=== PATIENT | male | born 1950 | race Caucasian/White ===

== ENCOUNTER 2020-03-01 13:01 | Emergency (ER) | payer MEDICARE, SELFPAY ==
[2020-03-01 13:05] VITALS: BP 104/52; PULSE 53; RESP 18; TEMP 36.3; O2SAT 98; BMI 23.9
--- NOTE | 2020-03-01 13:14 | XR_ITS ---
WS: [id number] RIGHT HAND: 3 VIEW(S) TECHNIQUE: PA, oblique and lateral. HISTORY: trauma COMPARISON: None available. Linear defect in the third finger extends from the distal phalanx through the middle phalanx and a ma jority of the proximal phalanx. There are multiple small bony fragments of soft tissue injury. Otherwise interphalangeal arthritis. XR/XR hand RT min 3V* [id number] IMPRESSION: 1. Linear fracture with osseous defects and fragmentation involving the third finger as above. 2. No residual foreign body.
--- NOTE | 2020-03-01 13:17 | W.ED.WOUNDLC ---
HPI - Wound/Laceration General: Chief Complaint: Wound/Laceration Stated Complaint: hand lac Time Seen by Provider: 03/01/20 13:05 Source: patient Mode of arrival: ambulatory Limitations: language barrier (pt is deaf) History of Present Illness: HPI narrative: Patient is a 69-year-old male who presents to ED today with complaints of a right hand injury. Patient states he was in his shop with a running table saw when he accidentally tripped causing his right hand to go forward and strike the running saw blade. Onset (ago): minute(s) Extremity Location: Right: hand Place: home Patient tetanus UTD: No Review of Systems Skin/Breast: Reports: other (laceration/soft tissue injury to R hand) Neuro: Reports: changes in sensation (R 3rd finger) Physical Exam Const: COMMON NORMALS: no apparent distress, average body habitus, oriented x3, healthy appearing, alert and well nourished EXAM LIMITATIONS: language barrier (pt is deaf but reads lips well) Extremity: OTHER: Patient has been extensive laceration starting at the palmar aspect of the distal tip of the third digit and extending proximally into the palm. The entire flexor side of the digit is exposed with exposed and damaged flexor tendons. Sensory does appear to be affected. Nerve fibers are noted to be damaged. Laceration depth extends almost fully through the digit. Neuro: COMMON NORMALS: oriented x3 SENSORIUM/ORIENTATION: Yes alert Skin: OTHER: see extremity assessment Course Consultations: Consultation #1: Dr. Candelaria spoke to [facility] hand surgeon Dr. Cee who recommended transfer to OR holding for surgery Vital Signs: Vital signs: Vital Signs Temperature 97.3 F L 03/01/20 13:05 Pulse Rate 53 L 03/01/20 13:05 Respiratory Rate 18 03/01/20 13:05 Blood Pressure 104/52 03/01/20 13:05 Pulse Oximetry 98 03/01/20 13:05 MDM - Wound/Laceration Imaging Data^: R hand XR: My impression: fractures involving distal, middle, and proximal phalanx of R 3rd digit Discharge Plan Discharge Patient Disposition: Xfer Other Clinical Impression: Flexor tendon laceration, finger, open wound Qualifiers: Encounter type: initial encounter Qualified Code(s): S56.129A - Laceration of flexor muscle, fascia and tendon of unspecified finger at forearm level, initial encounter Open fracture of middle phalanx of right index finger Qualifiers: Encounter type: initial encounter Fracture alignment: nondisplaced Qualified Code(s): S62.650B - Nondisplaced fracture of middle phalanx of right index finger, initial encounter for open fracture Open fracture of proximal phalanx of right middle finger Qualifiers: Encounter type: initial encounter Fracture alignment: nondisplaced Qualified Code(s): S62.642B - Nondisplaced fracture of proximal phalanx of right middle finger, initial encounter for open fracture Open fracture of distal phalanx of right middle finger Qualifiers: Encounter type: initial encounter Fracture alignment: nondisplaced Qualified Code(s): S62.662B - Nondisplaced fracture of distal phalanx of right middle finger, initial encounter for open fracture Condition: Stable Referrals: Joao Zuñiga MD [Family Provider] - Coding Level of Care Code 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
[2020-03-01] MEDS: ondansetron 2 mg/ML SDV 2 mL 4 MG IVP (13:26)
[2020-03-01 13:27] VITALS: RESP 18
[2020-03-01] MEDS: morphine 4 mg/mL SDV 1 mL IVP (13:27)
[2020-03-01] MEDS: ceFAZolin 1,000 mg SDV 1000 MG IVP (13:28)
[2020-03-01] MEDS: tetanus-diphtheria tox (adult) 0.5 mL SDV IM (15:52)
[2020-03-01 16:56] VITALS: BP 121/60; PULSE 53; RESP 20; O2SAT 98
== END 2020-03-01 16:58 | disposition other institution (70) ==
PROVIDERS: Emergency Provider Physician Assistant; Family Provider Family Medicine
DX: S62.650B Nondisplaced fracture of middle phalanx of right index finger, initial encounter for open fracture (principal); S62.642B Nondisplaced fracture of proximal phalanx of right middle finger, initial encounter for open fracture; S62.662B Nondisplaced fracture of distal phalanx of right middle finger, initial encounter for open fracture; S56.129A Laceration of flexor muscle, fascia and tendon of unspecified finger at forearm level, initial encounter; W31.2XXA Contact with powered woodworking and forming machines, initial encounter; H91.3 Deaf nonspeaking, not elsewhere classified; Z23 Encounter for immunization
CPT/HCPCS: 12345; 73130; 90471; 90714; 96374; 96375; 99281; 99283; J0690; J2270; J2405

== ENCOUNTER 2020-03-16 14:06 | Outpatient (RCR) | payer MEDICARE, SELFPAY | END 2020-03-19 23:59 | disposition home or self-care (01) | LOC: SOT 14:06 | PROVIDERS: Family Provider Family Medicine; PCP Family Medicine; Referring Provider Physician Assistant Surgical; Visit Provider Physician Assistant Surgical | DX: S69.81XD Other specified injuries of right wrist, hand and finger(s), subsequent encounter (principal); W31.2XXD Contact with powered woodworking and forming machines, subsequent encounter | CPT/HCPCS: 97110; 97166 ==

== ENCOUNTER 2020-03-20 06:00 | Outpatient (RCR) | payer MEDICARE, SELFPAY | END 2020-04-19 23:59 | disposition home or self-care (01) | LOC: SOT 06:00 | PROVIDERS: Family Provider Family Medicine; PCP Family Medicine; Referring Provider Physician Assistant Surgical; Visit Provider Physician Assistant Surgical | DX: S69.81XD Other specified injuries of right wrist, hand and finger(s), subsequent encounter (principal); W31.2XXD Contact with powered woodworking and forming machines, subsequent encounter | CPT/HCPCS: 97035; 97110; 97140 ==

== ENCOUNTER 2020-04-20 06:00 | Outpatient (RCR) | payer MEDICARE, SELFPAY | END 2020-04-22 23:00 | disposition home or self-care (01) | LOC: SOT 06:00 | PROVIDERS: PCP Family Medicine; Visit Provider Physician Assistant Surgical | DX: S69.81XD Other specified injuries of right wrist, hand and finger(s), subsequent encounter (principal); W31.2XXD Contact with powered woodworking and forming machines, subsequent encounter | CPT/HCPCS: 97035; 97110; 97112; 97140 ==

== ENCOUNTER 2020-06-03 12:08 | Emergency (ER) | payer MEDICARE, SELFPAY ==
[2020-06-03 12:10] VITALS: BP 125/69; PULSE 59; RESP 16; TEMP 36.6; O2SAT 98; BMI 23.0
--- NOTE | 2020-06-03 12:42 | W.ED.WOUNDLC ---
HPI - Wound/Laceration General: Chief Complaint: Wound/Laceration Stated Complaint: BLEEDING Time Seen by Provider: 06/03/20 12:29 Source: patient and family History of Present Illness: HPI narrative: 70-year-old male was cutting down cedar trees just prior to arrival and his chainsaw went through 1 flipped back and hit him on his right lower leg. He is not on any blood thinners. Tetanus is up-to-date last shot was in February of this year. Pain is minimal. No other injuries. Bleeding is controlled. Associated symptoms: Denies chills, fever(s), nausea or vomiting Review of Systems General: Reports: 10 or more systems reviewed and unremarkable except in HPI and below Const: Denies: fever(s) or chills Eyes: Denies: change in vision ENMT: Denies: throat pain Card: Denies: chest pain Resp: Denies: dyspnea GI: Denies: abdominal pain, nausea, vomiting or change in bowel habits Musc: Denies: muscle weakness Skin/Breast: Reports: other (Laceration to right lower extremity); Denies: rash Neuro: Denies: headache(s) Psych: Denies: hopelessness or suicidal ideation Endo: Denies: polyuria Timi/Lymph: Denies: easy bruising or easy bleeding All/Imm: Denies: urticaria Physical Exam Const: COMMON NORMALS: no acute distress and patient oriented x3 HENMT: COMMON NORMALS: normocephalic and Normal external nose present HEAD & SCALP: normocephalic NOSE: Normal external nose present Eye: COMMON NORMALS: Equal, round and reactive pupils present and EOMs intact bilaterally PUPIL: Yes Equal, round and reactive pupils present Resp: COMMON NORMALS: normal respiratory effort and clear to auscultation bilaterally AUSCULTATION: clear to auscultation bilaterally Cardio: COMMON NORMALS: regular rate and regular rhythm RATE: regular rate RHYTHM: regular rhythm Extremity: OTHER: RLE WITH 3 CM LACERATION TO MEDIAL LOWER LEG WITH BLEEDING CONTROLLED. NORMAL FLEXIONN/EXTENSION OF FOOT. SENSATION INTACT TO TOUCH GOOD DISTAL PULSES Neuro: COMMON NORMALS: patient oriented x3 SPEECH: speech normal Psych: COMMON NORMALS: Normal thought process present THOUGHT PROCESS: Normal thought process present Skin: OTHER: SEE EXTREMITY SECTION FOR DETAILS OF LACERATION. 3 CM Procedures Laceration Laceration 1: Site: lower extremity Side (If applicable): right Size (cm): 3 Description: irregular and contaminated Depth: simple, single layer (ALONG WITH SUBCUTANEOUS TISSUE BUT NO MUSCLE) Local Anesthetic: lidocaine 1% and with epi Amount of anesthesia used (mL): 3 Pre-repair: wound explored, irrigated extensively and deep structures intact Skin layer closed with: nylon and vicryl Size (cm): 4-0 Number of sutures: 1 Technique: running Subcutaneous layer closed with: vicryl Size: 4-0 Number of sutures: 5 Technique: simple, interrupted Course Vital Signs: Vital signs: Vital Signs Temperature 98 F 06/03/20 12:10 Pulse Rate 49 L 06/03/20 12:46 Respiratory Rate 18 06/03/20 12:46 Blood Pressure 125/69 06/03/20 12:46 Pulse Oximetry 99 06/03/20 12:46 MDM - Wound/Laceration MDM Narrative: Medical decision making narrative: Irrigated wound with normal saline several specks of what I seem to be much dirt or wood chips were removed with cotton swab and then irrigated again copiously until wound appeared to be clean. Patient tolerated procedure well. Asked them to return to the ER 7 to 10 days for suture removal anytime at all if any sign of infection. Will start Keflex since wound was contaminated. Discharge Plan Discharge Patient Disposition: Home, Self-Care Clinical Impression: Laceration Condition: Stable Prescriptions: New Keflex 500 mg capsule 500 mg PO TID 10 Days Qty: 30 RF: 0 Referrals: Joao Zuñiga MD [Primary Care Provider] - Patient Instructions: Suture Care (ED), Laceration (ED) Activity Restrictions/Additional Instructions: Return to ER in 7-10 for suture removal. Return to ER anytime if any sign of infection. keep leg clean and dry. Coding Level of Care Code ED Urban Planning Teacher for Haylee Garcia
[2020-06-03 12:46] VITALS: BP 125/69; PULSE 49; RESP 18; O2SAT 99
[2020-06-03 13:48] VITALS: BP 122/67; PULSE 50; RESP 16; O2SAT 98
--- NOTE | 2020-06-11 10:06 | PC.NURSE ---
Sutures removed at this time. Whit Bustillo PA-C looked at the wound due to it opening back up a little after sutures removed. Per RJ Sherman to ensure patient is keeping the wound clean and dry and to apply antibiotics to the site. Also educated to continue antibiotics that patient was previously placed on after the incident happened.
== END 2020-06-03 13:48 | disposition home or self-care (01) ==
PROVIDERS: Emergency Provider Emergency Medicine; PCP Family Medicine
DX: S81.811A Laceration without foreign body, right lower leg, initial encounter (principal); W29.3XXA Contact with powered garden and outdoor hand tools and machinery, initial encounter
CPT/HCPCS: 12032; 12345; 99282

== ENCOUNTER → 2021-06-07 13:44 | Outpatient (BNVA) | payer MEDICARE, SELFPAY | PROVIDERS: PCP Family Medicine; Referring Provider Family Medicine; Visit Provider Specialist | DX: M79.643 Pain in unspecified hand (principal); M66.242 Spontaneous rupture of extensor tendons, left hand | CPT/HCPCS: 73130 ==

== ENCOUNTER → 2023-06-05 11:22 | Outpatient (BNVA) | payer MEDICARE, SELFPAY | PROVIDERS: PCP Family Medicine; Visit Provider Family Medicine | DX: I25.10 Atherosclerotic heart disease of native coronary artery without angina pectoris (principal); G56.03 Carpal tunnel syndrome, bilateral upper limbs; E78.00 Pure hypercholesterolemia, unspecified; I10 Essential (primary) hypertension; Z00.00 Encounter for general adult medical examination without abnormal findings | CPT/HCPCS: 80053; 80061; 85025 ==

== ENCOUNTER → 2023-07-03 12:49 | Outpatient (BNVA) | payer MEDICARE, SELFPAY | PROVIDERS: PCP Family Medicine; Visit Provider Surgery | DX: K59.00 Constipation, unspecified (principal) | CPT/HCPCS: 99202 ==

== ENCOUNTER 2023-07-10 12:52 | Emergency (ER) | payer MEDICARE, SELFPAY ==
[2023-07-10 12:58] VITALS: BMI 23.9
[2023-07-10 13:07] VITALS: BP 132/78; PULSE 88; RESP 16; TEMP 36.4; O2SAT 95
--- NOTE | 2023-07-10 14:41 | CTR_ITS ---
PROCEDURE INFORMATION: Exam: CT Chest Without Contrast; Diagnostic Exam date and time: 07/10/2023 2:59 PM Age: 73 years old Clinical indication: Injury or trauma; Fall; Blunt trauma (contusions or hematomas); Patient HX: Left rib pain; Additional info: Trauma left chest TECHNIQUE: Imaging protocol: Diagnostic computed tomography of the chest without contrast. Radiation optimization: All CT scans at this facility use at least one of these dose optimization techniques: automated exposure control; mA and/or kV adjustment per patient size (includes targeted exams where dose is matched to clinical indication); or iterative reconstruction. REPORTING DATA: Count of CT and Cardiac NM exams in prior 12 months: This patient has received 0 known CTs and 0 known cardiac nuclear medicine studies in the 12 months prior to the current study. COMPARISON: No relevant prior studies available. RADIATION DOSE METRICS: Total DLP (mGy-cm): 346.83 FINDINGS: Tubes, catheters and devices: Partially visualized spinal stimulator with right low back subcutaneous generator and leads coursing superiorly, terminating at the T7-8 level. Lungs: Mild patchy ground-glass opacities at the upper lobes. No consolidation or mass. Mild bibasilar platelike atelectasis versus scarring. Right lower lobe calcified granuloma. 2 mm subpleural right upper lobe nodule on axial image 27 of series 4. Pleural spaces: Unremarkable. No pneumothorax. No pleural effusion. Heart: Unremarkable. No cardiomegaly. No pericardial effusion. Coronary arteries: Mild coronary artery calcification. Lymph nodes: No enlarged lymph nodes. Vasculature: Mild systemic atherosclerotic calcification without aortic aneurysm. Diaphragm: Moderate hiatal hernia. Gallbladder and bile ducts: Prior cholecystectomy. Kidneys and ureters: Bilateral renal cysts. Bones/joints: No acute fracture. Chronic appearing ununited left clavicle fracture. Mild upper thoracic spine dextroconvex curvature. Degenerative changes along the spine. Left humeral head suture anchor. L2-L3 posterior instrumented fusion. Soft tissues: Unremarkable. CT/CT chest wo con [id number] IMPRESSION: 1. No acute fracture. 2. Mild bilateral upper lobe patchy ground-glass opacities may represent contusion given history of trauma. Infectious or inflammatory etiology not entirely excluded. Recommend follow-up chest CT in 3-6 months, at which time 2 mm right upper lobe nodule can also be reassessed. 3. Moderate hiatal hernia. COMMENTS: Consistent with the [employer]'s Incidental Findings Committee white paper (J Am Rolf Radiol 2018): Any incidental renal lesion less than 1 cm or classified as too small to characterize, or any incidental cystic renal lesion characterized as simple-appearing, is likely benign. No follow-up imaging is recommended for these lesions per consensus recommendations based on imaging criteria.
--- NOTE | 2023-07-10 14:47 | W.ED.FALL ---
HPI - Fall General: Chief Complaint: Fall Stated Complaint: fell off ladder, rib pain Time Seen by Provider: 07/10/23 14:37 Source: patient and family Mode of arrival: ambulatory Limitations: no limitations History of Present Illness: This patient comes to our emergency department today because of left chest pain. He apparently was working on a ladder approximately 4 feet off the ground and an accidental fall from at height landing on his left side and chest. He states he did not hit his head. He states that part of the fall was broken by barbed wire fence however he he had a protective rib belt on at that time he did not suffer any significant lacerations other than just some minor scratching to his left flank. Also has a few scratches on his forehead. He states that since that time he is continue to have pain in his left chest particularly with taking deep breaths or twisting and turning and moving. He denies any fevers or chills. Denies any hemoptysis etc. States he has no other areas of concern for injury at this time. Past history is remarkable for prior back fusion. But he denies any midline back pain. Place fall occurred: home Loss of consciousness: None Location of injury: chest Associated symptoms-after fall: Reports chest pain; Denies abdominal pain, headache(s), hematuria or neck pain Review of Systems Const: Denies: fever(s) or chills Eyes: Denies: change in vision or blurry vision Card: Reports: chest pain; Denies: palpitations or irregular heart rhythm Resp: Reports: pain on inspiration; Denies: dyspnea, productive cough or non-productive cough GI: Denies: abdominal pain, nausea, vomiting or diarrhea : Denies: flank pain, difficulty urinating, dysuria, urinary frequency or hematuria Musc: Denies: neck pain, extremity pain or extremity swelling Neuro: Denies: headache(s), numbness in extremities or weakness in extremities Timi/Lymph: Denies: easy bruising or easy bleeding PFSH ED PFSH: Medical History Carpal tunnel syndrome, bilateral upper limbs [id number] Coronary artery disease Hypercholesteremia Hypertension Family History Denies family history of Anesthesia complication Social History Smoking and tobacco status: former smoker (2010) Alcohol intake: current Alcohol intake frequency: 0-2 Drinks per Day Alcohol type: beer Physical Exam Narrative: EXAM NARRATIVE: He is alert appears to be somewhat uncomfortable with certain movement and taking deep breaths but answers questions in a goal-directed fashion. Const: COMMON NORMALS: average body habitus and patient oriented x3 GENERAL APPEARANCE: cooperative ORIENTATION/CONSCIOUSNESS: Yes awake, Yes oriented to person and Yes oriented to place HENMT: COMMON NORMALS: normocephalic, Normal nasal mucous membranes and turbinates present, moist oral mucous membranes and oropharynx normal HEAD & SCALP: normocephalic and abrasion; no contusion and no hematoma HEAD IMAGES: 1. Superficial abrasions FACE & SINUS: face symmetric NOSE: Normal nasal mucous membranes and turbinates present Eye: COMMON NORMALS: Equal, round and reactive pupils present, EOMs intact bilaterally and conjunctivae normal CONJUNCTIVA: Yes conjunctivae normal PUPIL: Yes Equal, round and reactive pupils present Neck/C-Spine: COMMON NORMALS: full ROM CERVICAL SPINE: Yes cervical ROM normal, No pain with cervical ROM, No Cervical spine tenderness, No step off deformity, No Paracervical muscle tenderness, No Paracervical spasm and No Trapezius muscle tenderness Resp: COMMON NORMALS: normal respiratory effort, No retractions, No use of accessory muscles and clear to auscultation bilaterally AUSCULTATION: clear to auscultation bilaterally Cardio: COMMON NORMALS: regular rate, regular rhythm, No murmurs present (Cardio) and Peripheral pulses 2+ throughout RATE: regular rate RHYTHM: regular rhythm PERIPHERAL PULSES: Peripheral pulses 2+ throughout GI: COMMON NORMALS: Normal to inspection, nondistended, normoactive bowel sounds present Back/Pelvis: COMMON NORMALS: thoracic and lumbar spine normal to inspection, thoraco-lumbar ROM normal and straight leg raise negative bilaterally BACK IMAGE (MALE): 1. Superficial abrasions 2. Area of tenderness Extremity: COMMON NORMALS: normal to inspection, full ROM, no calf tenderness and no pedal edema Neuro: COMMON NORMALS: patient oriented x3, moves all extremities, no focal motor deficits and no sensory deficits noted SENSORIUM/ORIENTATION: Yes oriented to person and Yes oriented to place Psych: COMMON NORMALS: mental status grossly normal Skin: COMMON NORMALS: turgor normal GENERAL SKIN EXAM: turgor normal TRAUMA: abrasion Course Reevaluation(s): Reevaluation #1: Patient was reevaluated and no new or focal findings on repeat examination. We discussed current radiographic findings to include a reassuring chest CT without any evidence of pneumothorax or rib fracture etc. 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 He states he thinks its been present approximately 8 years. He states he previously saw an orthopedic surgeon in the past but they declined to provide any therapy. I asked him if you would like a referral to another orthopedic surgeon today but he stated he would consider that but did not want that to be put entertained today. We discussed expected course, return precautions with both he and his spouse. Stable at this time for discharge. Time: 16:36 Vital Signs: Vital signs: Vital Signs Temperature 97.5 F L 07/10/23 13:07 Pulse Rate 49 L 07/10/23 15:30 Respiratory Rate 16 07/10/23 13:07 Blood Pressure 119/63 07/10/23 15:30 Pulse Oximetry 99 07/10/23 15:30 Oxygen Delivery Me thod Room Air 07/10/23 15:30 MDM - Fall Medical Decision Making This patient comes to our emergency department because of concerns about chest wall injury. He apparently had a fall from a ladder approximately 4 feet landing predominantly on his left chest. He states that he did not hit his head or suffer loss of consciousness. He did suffer some superficial abrasions during this fall that occurred on Monday. Denies any fevers or chills or difficulty breathing other than painful deep breathing. Clinical examination revealed superficial abrasion to his right forehead as well as superficial abrasion to his left thorax posteriorly. There was no other concerning findings. Imaging was ordered to evaluate for rib fractures, pneumothorax etc. Imaging did reveal a clavicle fracture which apparently is a chronic nonunion and an old injury. There was no evidence of new injuries today to include pneumothorax etc.\ The patient is stable to be discharged without any evidence of an ongoing emergency medical condition. We reviewed his imaging results and he declined further orthopedic evaluation for his nonunion. Medical Records I reviewed the patient's medical records. No imaging of his clavicle available from past medical records. Lab Data I reviewed the patient's lab results. Radiology Impressions Chest CT 07/10/23 14:41 IMPRESSION: 1. No acute fracture. 2. Mild bilateral upper lobe patchy ground-glass opacities may represent contusion given history of trauma. Infectious or inflammatory etiology not entirely excluded. Recommend follow-up chest CT in 3-6 months, at which time 2 mm right upper lobe nodule can also be reassessed. 3. Moderate hiatal hernia. COMMENTS: Consistent with the [employer] [place]'s Incidental Findings Committee white paper (J Am Rolf Radiol 2018): Any incidental renal lesion less than 1 cm or classified as too small to characterize, or any incidental cystic renal lesion characterized as simple-appearing, is likely benign. No follow-up imaging is recommended for these lesions per consensus recommendations based on imaging criteria. Clavicle X-Ray 07/10/23 15:34 IMPRESSION: Chronic ununited midshaft fracture left clavicle, stable. Discharge Plan Discharge Patient Disposition: Home Clinical Impression: Chest wall contusion, Abrasion of skin Condition: Stable Prescriptions: New Lidoderm 5 % adhesive patch,medicated 1 patch topical DAILY PRN (Reason: pain) Qty: 15 0RF Rx Instructions: leave on most painful area for up to 12 hrs No Action nitroglycerin [Nitrostat] 0.4 mg tablet, sublingual 0.4 mg sublingual Q5M PRN Rx Instructions: do not exceed 3 doses per episode carvedilol 12.5 mg tablet 12.5 mg PO BID Rx Instructions: must administer with a meal/food omeprazole magnesium 20 mg capsule,delayed release(DR/EC) 20 mg PO DAILY aspirin 325 mg tablet 325 mg PO DAILY Jublia 10 % solution with applicator 1 applic topical DAILY lisinopril 40 mg tablet 40 mg PO DAILY Qty: 90 3RF escitalopram oxalate 20 mg tablet See Rx Instructions .ROUTE .COMPLEX Qty: 90 3RF Dose Instruction: TAKE 1 TABLET BY MOUTH ONCE DAILY Rx Instructions: TAKE 1 TABLET BY MOUTH ONCE DAILY fluticasone propionate 50 mcg/actuation spray,suspension See Rx Instructions .ROUTE .COMPLEX Qty: 16 11RF Dose Instruction: USE 2 SPRAYS IN BOTH NOSTRILS ONCE DAILY Rx Instructions: USE 2 SPRAYS IN BOTH NOSTRILS ONCE DAILY simvastatin 20 mg tablet See Rx Instructions .ROUTE .COMPLEX Qty: 45 3RF Dose Instruction: TAKE ONE-HALF TABLET BY MOUTH ONCE DAILY Rx Instructions: TAKE ONE-HALF TABLET BY MOUTH ONCE DAILY Discharge Orders: Discharge ED (Routine); Ordered 07/10/23 Ordered By: Casey Shields Referrals: Joao Zuñiga MD [Primary Care Provider] - Discharge Diet: Advance as tolerated Discharge Activity: Increase activity as tolerated Patient Instructions: Opioid Safety, Pain Management Activity Restrictions/Additional Instructions: As we discussed while you are in the emergency department your fall injury did not result in any serious condition such as a collapsed lung, fractured ribs, etc. You do have a chronically broken collarbone which also is still present. We have prescribed for prescribed a Lidoderm patch that may help with some of your rib pain. Should your pain worsen, you develop difficulty breathing, fevers or any other worrisome conditions return to this emergency department immediately. If you decide to have your collarbone reevaluated contact your primary care physician for orthopedic referral. Chest wall injuries and chest bruises sometimes can take 2 to 3 weeks to improve. Coding Level of Care Code ED Divinity Professor for Haylee Garcia
[2023-07-10 14:52] VITALS: BP 133/57; PULSE 53; O2SAT 97
[2023-07-10 15:19] VITALS: BP 143/63; PULSE 49; O2SAT 100
[2023-07-10 15:30] VITALS: BP 119/63; PULSE 49; O2SAT 99
--- NOTE | 2023-07-10 15:34 | XRR_ITS ---
PROCEDURE INFORMATION: Exam: XR Left Clavicle, Complete Exam date and time: 07/10/2023 3:54 PM Age: 73 years old Clinical indication: Injury or trauma; Fall; Blunt trauma (contusions or hematomas); Shoulder; Left TECHNIQUE: Imaging protocol: Radiologic exam of the left clavicle. Complete exam. Views: Any number of views. COMPARISON: CT chest wo con [id number] 07/10/2023 2:59 PM FINDINGS: Bones/joints: Old ununited displaced fracture mid shaft left clavicle, stable. Evidence of prior rotator cuff repair left humeral head. Mild degenerative joint space narrowing glenohumeral joint and AC joint. No acute bony abnormalities detected. Soft tissues: Normal. XR/[place] [id number] IMPRESSION: Chronic ununited midshaft fracture left clavicle, stable.
[2023-07-10 16:30] VITALS: BP 130/72; PULSE 50; O2SAT 98
[2023-07-10 16:48] VITALS: BP 108/61; PULSE 49; O2SAT 98
== END 2023-07-10 16:50 | disposition home or self-care (01) ==
PROVIDERS: Emergency Provider Emergency Medicine; PCP Family Medicine
DX: S20.212A Contusion of left front wall of thorax, initial encounter (principal); S00.81XA Abrasion of other part of head, initial encounter; S20.91XA Abrasion of unspecified parts of thorax, initial encounter; I25.10 Atherosclerotic heart disease of native coronary artery without angina pectoris; I10 Essential (primary) hypertension; Z87.891 Personal history of nicotine dependence; W11.XXXA Fall on and from ladder, initial encounter; Z79.82 Long term (current) use of aspirin
CPT/HCPCS: 71250; 73000; 99284

== ENCOUNTER 2023-08-24 07:02 | Day surgery (SDC) | payer MEDICARE, SELFPAY ==
--- NOTE | 2023-08-24 06:23 | W.PM.OPSFHP ---
Same Day Surgery H&P Indication for Procedure/HPI DATE OF PROCEDURE: August 24, 2023 CHIEF COMPLAINT/INDICATIONFOR SURGICAL PROCEDURE: need for screening colonoscopy PREOP DIAGNOSIS: encounter for screening colonoscopy PLANNED PROCEDURE: Operation Date: 08/24/23 08:10 Proposed Procedures p Colonoscopy [id number],Z12.11(Not Applicable) - Malcolm Garza MD Medications/Allergies* Home Medications Medication Instructions Recorded Confirmed Type aspirin 325 mg tablet 325 mg PO DAILY 06/07/21 08/23/23 History escitalopram oxalate 20 mg tablet 20 mg PO DAILY 08/23/23 08/23/23 History fluticasone propionate 50 2 spray intranasal DAILY 08/23/23 08/23/23 History mcg/actuation nasal spray,suspension meloxicam 15 mg tablet 15 mg PO DAILY PRN Abdominal 08/23/23 08/23/23 History Discomfort simvastatin 20 mg tablet 10 mg PO DAILY 08/23/23 08/23/23 History tramadol 50 mg tablet See Rx Instructions .Route 08/23/23 08/23/23 History .COMPLEX PRN Pain Allergies/Adverse Reactions Allergy/AdvReac Type Severity Reaction Status Date / Time No Known Allergies Allergy Verified 08/23/23 10:57 Pertinent History/Comorbid Conditions* Medical History (Updated 07/18/23 @ 00:00 by KATHRYN Segura) Carpal tunnel syndrome, bilateral upper limbs [id number] Coronary artery disease Hypercholesteremia Hypertension Family History (Updated 07/03/23 @ 13:10 by DOMI Luna) Denies family history of Anesthesia complication Social History Smoking and tobacco status: former smoker (2010) Alcohol intake: current Alcohol intake frequency: 0-2 Drinks per Day Alcohol type: beer Pertinent Exam Findings alert, oriented x 3, clear to auscultation bilaterally and regular rate & rhythm Recommendations Surgery/Procedure today Coding Level of Care Code Acute Code for Chg Fwd Diagnoses
[2023-08-24 07:23] VITALS: BP 133/96; PULSE 88; TEMP 36.7; O2SAT 98
--- NOTE | 2023-08-24 07:28 | P.ANESASSM_ITS ---
Pre-Anesthetic Assessment Height/Weight: Height 1.75 m Temp Pulse BP Pulse Ox O2 Del Method 98.1 F 88 133/96 98 Room Air 08/24/23 07:23 08/24/23 07:23 08/24/23 07:23 08/24/23 07:23 08/24/23 07:23 Preop Diagnosis: encounter for screening colonoscopy Operation Date: 08/24/23 08:10 Proposed Procedures p Colonoscopy 24264,Z12.11(Not Applicable) - Malcolm Garza MD Familial anesthetic complications: None Was Beta Shweta taken within 24 hours: N/A Was Clonidine taken within 24 hours: N/A Last intake: Intake Last Liquid Date 08/23/23 Last Liquid Time 21:00 Last Solid Date 08/22/23 Last Solid Time 17:00 Social Alcohol (drinks one beer daily) and No alcohol Exam alert, oriented x 3 and clear to auscultation bilaterally Airway Submandibular: within normal limits Mallampati: Class II Dentition: full History/ROS No significant history except as noted Pulmonary None reported CV/HEM Hypertension None reported Hepatic None reported GI constipation Metabolic None reported Musc/skel None reported Neuropsych None reported Anesthetic Plan ASA status: 2 Anesthesia: Anesthesia Evaluation and MAC Medications/Allergies Home Medications Medication Instructions Recorded Confirmed Last Taken Type aspirin 325 mg tablet 325 mg PO DAILY 06/07/21 08/23/23 08/20/23 History lisinopril 40 mg tablet 40 mg PO DAILY #90 tabs 02/22/23 08/23/23 08/21/23 Rx escitalopram oxalate 20 mg tablet 20 mg PO DAILY 08/23/23 08/23/23 08/22/23 History fluticasone propionate 50 2 spray intranasal DAILY 08/23/23 08/23/23 08/21/23 History mcg/actuation nasal spray,suspension meloxicam 15 mg tablet 15 mg PO DAILY PRN Abdominal 08/23/23 08/23/23 08/21/23 History Discomfort simvastatin 20 mg tablet 10 mg PO DAILY 08/23/23 08/23/23 08/21/23 History tramadol 50 mg tablet See Rx Instructions .Route 08/23/23 08/23/23 08/23/23 History .COMPLEX PRN Pain Allergies Allergy/AdvReac Type Severity Reaction Status Date / Time No Known Allergies Allergy Verified 08/24/23 07:16 [facility] Anesthesia Medical History Carpal tunnel syndrome, bilateral upper limbs [id number] Coronary artery disease Hypercholesteremia Hypertension Family History Denies family history of Anesthesia complication Social History Smoking and tobacco status: former smoker (2010) Alcohol intake: current Alcohol intake frequency: 0-2 Drinks per Day Alcohol type: beer Data Anesthesia Cardiac Studies: No Data to Display
[2023-08-24] MEDS: sodium chloride 0.9% 1,000 ML 30 ML IV (07:29)
[2023-08-24 07:31] VITALS: BMI 24.0
[2023-08-24 08:32] VITALS: BP 100/67; PULSE 58; RESP 13; TEMP 36.1; O2SAT 98
--- NOTE | 2023-08-24 08:38 | ANE.PACU2 ---
Inpatient post-anesthesia follow up: Airway intact: Yes Vital signs: Temperature 97 F Pulse Rate 58 Respiratory Rate 13 Blood Pressure 100/67 Pulse Oximetry 98 Oxygen Delivery Me thod Nasal Cannula Oxygen Flow Rate 3 Fraction of Inspir ed Oxygen Hydration adequate: Yes Nausea and vomiting: No Pain level: 0 Mental status: Baseline
[2023-08-24 08:55] VITALS: BP 125/90; PULSE 63; RESP 16; O2SAT 99
== END 2023-08-24 09:10 | disposition home or self-care (01) ==
PROVIDERS: PCP Family Medicine; Visit Provider Surgery
PROC: 0DJD8ZZ Inspection of Lower Intestinal Tract, Via Natural or Artificial Opening Endoscopic (ICD-10-PCS; CPT 45378; principal; 2023-08-24 08:10)
DX: Z12.11 Encounter for screening for malignant neoplasm of colon (principal); K57.30 Diverticulosis of large intestine without perforation or abscess without bleeding; Z79.82 Long term (current) use of aspirin; I25.10 Atherosclerotic heart disease of native coronary artery without angina pectoris; E78.00 Pure hypercholesterolemia, unspecified; I10 Essential (primary) hypertension; Z87.891 Personal history of nicotine dependence
CPT/HCPCS: 45378; J2704; J7030

== ENCOUNTER → 2024-01-02 09:54 | Outpatient (BNVA) | payer MEDICARE, SELFPAY | PROVIDERS: PCP Family Medicine; Visit Provider Family Medicine | DX: R35.1 Nocturia (principal) | CPT/HCPCS: 84153 ==

== ENCOUNTER 2024-03-02 21:31 | Emergency (ER) | payer MEDICARE, SELFPAY ==
[2024-03-02 21:35] VITALS: BP 157/70; PULSE 75; RESP 18; TEMP 36.5; O2SAT 95; BMI 23.6
--- NOTE | 2024-03-02 22:05 | XRR_ITS ---
PROCEDURE INFORMATION: Exam: XR Chest Exam date and time: 03/02/2024 10:28 PM Age: 73 years old Clinical indication: Shortness of breath; Patient HX: C/O SOB TECHNIQUE: Imaging protocol: Radiologic exam of the chest. Views: 1 view. COMPARISON: CT chest con [id number] 07/10/2023 2:59 PM FINDINGS: Tubes, catheters and devices: Spinal stimulator. Lungs: Emphysematous changes. Pleural spaces: Unremarkable. No pleural effusion. No pneumothorax. Heart/Mediastinum: Cardiomegaly. Bones/joints: Unremarkable. XR/XR chest 1V portable [id number] IMPRESSION: 1. Cardiomegaly. 2. Emphysematous changes. 3. Spinal stimulator.
[2024-03-02 22:08] VITALS: PULSE 74; RESP 18; O2SAT 97
[2024-03-02 22:14] LABS: Basophils % 0.7 %; Eosinophils # 0.6 10^3/uL (0.0-0.8); Eosinophils % 9.8 %; Hematocrit 39.5 % (37-53); Lymphocytes # 1.1 10^3/uL (0.8-4.8); Lymphocytes % 17.1 %; Mean Corpuscular HGB Conc 33.9 g/dL (30-55); Mean Corpuscular Volume 91.4 fl (82-101); Mean Platelet Volume 9.1 fL (7.4-10.4); Monocytes # 0.6 10^3/uL (0.2-0.9); Monocytes % 9.6 %; Neutrophils # 3.84 10^3/uL (1.8-7.7); Neutrophils % 62.3 %; Nucleated Red Blood Cells % 0 %; Platelet Count 210 10^3/cmm (157-399); Red Blood Count 4.32 10^6/uL (3.85-5.65); Red Cell Distribution Width 12.2 % (12.1-15.1); White Blood Count 6.15 10^3/uL (3.29-11.43)
[2024-03-02 22:26] LABS: Influenza A by IFA negative (Negative); Influenza B by IFA negative (Negative); SARS Covid-2 Antigen negative (Negative)
[2024-03-02 22:31] LABS: Anion Gap 14.6 (5-19); Blood Urea Nitrogen 14 mg/dL (8-23); Calcium 8.9 mg/dL (8.5-10.5); Carbon Dioxide 24 mmol/L (22-29); Chloride 98 mmol/L (98-107); Creatinine Clr Calc Pharmacy 81.8698; Glucose 103 mg/dL (65-115); Osmolality Calculated 275 mOsm/kg (285-295); Potassium 4.6 mmol/L (3.5-5.1); Sodium 132 mmol/L (136-145)
[2024-03-02] MEDS: dexamethasone 10 mg/mL INJ IVP (22:31)
[2024-03-02 22:36] VITALS: PULSE 61; RESP 18; O2SAT 97
[2024-03-02] MEDS: ipratropium-albuterol 3 mL Neb INHALATION (22:36)
[2024-03-02 22:44] VITALS: PULSE 66; O2SAT 99
--- NOTE | 2024-03-02 23:10 | W.ED.SOB ---
HPI - SOB/Dyspnea General: Chief Complaint: Shortness of Breath/Dyspnea Stated Complaint: SOB Time Seen by Provider: 03/02/24 22:00 History of Present Illness: HPI Narrative: 73-year-old gentleman who says he had asthma as a kid. He presents with worsening shortness of breath and cough for the past couple of days. His says that he has had significant coughing fits at home that take his breath away . He has not had significant fever. They thought this might be allergies, so he took allergy medication at home and some exbo-flw-uqopdnu cough medicine. He continues to have chest congestion and cough. He does admit to some postnasal drip as well. Associated symptoms: Deny abdominal pain, chest pain, fever(s), nausea, palpitations or vomiting Review of Systems Const: Denies: fever(s) or chills Eyes: Denies: change in vision ENMT: Reports: throat pain Card: Denies: chest pain or palpitations Resp: Reports: dyspnea, non-productive cough and wheezing GI: Denies: abdominal pain, nausea or vomiting [facility] ED PFSH: Medical History Chronic back pain Hypertension Hypercholesteremia Carpal tunnel syndrome, bilateral upper limbs [id number] Coronary artery disease Family History Denies family history of Anesthesia complication Social History Smoking and tobacco/nicotine status: former use of tobacco/nicotine (2010) Alcohol intake: current Alcohol intake frequency: 0-2 Drinks per Day Alcohol type: beer Physical Exam Const: COMMON NORMALS: no acute distress GENERAL APPEARANCE: cooperative and frail appearing HENMT: COMMON NORMALS: normocephalic, atraumatic and Normal external nose present HEAD & SCALP: normocephalic and atraumatic FACE & SINUS: normal facial exam and face symmetric NOSE: Normal external nose present Eye: COMMON NORMALS: Equal, round and reactive pupils present and EOMs intact bilaterally PUPIL: Yes Equal, round and reactive pupils present Neck/C-Spine: GENERAL: Yes trachea midline Chest: CHEST: Yes Symmetrical chest wall rise Resp: COMMON NORMALS: normal respiratory effort, No retractions, No use of accessory muscles and clear to auscultation bilaterally AUSCULTATION: clear to auscultation bilaterally Cardio: COMMON NORMALS: regular rate and regular rhythm RATE: regular rate RHYTHM: regular rhythm GI: COMMON NORMALS: Normal to inspection, nondistended, normoactive bowel sounds present Extremity: COMMON NORMALS: no pedal edema Neuro: MONA COMA SCALE: document GCS findings [place] coma scale eye opening: Spontaneous Mona coma scale verbal response: Orientated Mona coma scale motor response: Obey commands [place] coma scale total score: 15 SENSORY EXAM: Yes extremities (intact) Psych: COMMON NORMALS: speech normal SPEECH: Yes normal speech Skin: COMMON NORMALS: no rashes or lesions noted GENERAL SKIN EXAM: no rashes or lesions noted Course Vital Signs: Vital signs: Vital Signs Temperature 97.7 F 03/02/24 21:35 Pulse Rate 66 03/02/24 22:44 Respiratory Rate 18 03/02/24 22:36 Blood Pressure 157/70 03/02/24 21:35 Pulse Oximetry 99 03/02/24 22:44 Oxygen Delivery Me thod Room Air 03/02/24 22:44 MDM - SOB/Dyspnea Medical Decision Making CBC is normal. BMP shows a sodium of 132 and is otherwise normal. Swabs for COVID and flu were negative. Chest x-ray is largely unremarkable. To be treated for an acute bronchitis/tracheitis Lab Data 03/02/24 22:02 03/02/24 22:02 Labs/Radiology: Radiology Impressions Chest X-Ray 03/02/24 22:05 IMPRESSION: 1. Cardiomegaly. 2. Emphysematous changes. 3. Spinal stimulator. Laboratory Results WBC 6.15 10^3/uL (3.29-11.43) 03/02/24 22:02 RBC 4.32 10^6/uL (3.85-5.65) 03/02/24 22:02 Hgb 13.40 g/dL (11.27-16.99) 03/02/24 22:02 Hct 39.5 % (37-53) 03/02/24 22:02 MCV 91.4 fl (82-101) 03/02/24 22:02 MCH 31.0 pg (27-33) 03/02/24 22:02 MCHC 33.9 g/dL (30-55) 03/02/24 22:02 RDW 12.2 % (12.1-15.1) 03/02/24 22:02 Plt Count 210 10^3/cmm (157-399) 03/02/24 22:02 MPV 9.1 fL (7.4-10.4) 03/02/24 22:02 Neut % (Auto) 62.3 % 03/02/24 22:02 Lymph % (Auto) 17.1 % 03/02/24 22:02 Duval % (Auto) 9.6 % 03/02/24 22:02 Eos % (Auto) 9.8 % 03/02/24 22:02 Baso % (Auto) 0.7 % 03/02/24 22:02 Neut # (Auto) 3.84 10^3/uL (1.8-7.7) 03/02/24 22:02 Lymph # (Auto) 1.1 10^3/uL (0.8-4.8) 03/02/24 22:02 Duval # (Auto) 0.6 10^3/uL (0.2-0.9) 03/02/24 22:02 Eos # (Auto) 0.6 10^3/uL (0.0-0.8) 03/02/24 22:02 Baso # (Auto) 0.0 10^3/uL (0.0-0.1) 03/02/24 22:02 Nucleated RBC % (auto) 0 % 03/02/24 22:02 Nucleated RBCs # 0.0 /100WBC 03/02/24 22:02 Sodium 132 mmol/L (136-145) L 03/02/24 22:02 Potassium 4.6 mmol/L (3.5-5.1) 03/02/24 22:02 Chloride 98 mmol/L (98-107) 03/02/24 22:02 Carbon Dioxide 24 mmol/L (22-29) 03/02/24 22:02 Anion Gap 14.6 (5-19) 03/02/24 22:02 BUN 14 mg/dL (8-23) 03/02/24 22:02 Creatinine 0.8 mg/dL (0.7-1.2) 03/02/24 22:02 GFR Calculation Not Reportable 03/02/24 22:02 Glucose 103 mg/dL (65-115) 04/13/24 22:02 Calculated Osmolality 275 mOsm/kg (285-295) L 03/02/24 22:02 Calcium 8.9 mg/dL (8.5-10.5) 03/02/24 22:02 Influenza Type A Ag negative (Negative) 03/02/24 22:02 Influenza Type B Ag negative (Negative) 03/02/24 22:02 SARS-CoV-2 Ag (Rapid) negative (Negative) 03/02/24 22:02 All radiology interpretation(s) finalized by discharge Discharge Plan Discharge Patient Disposition: Home Clinical Impression: Acute bronchitis Condition: Stable Prescriptions: New Medrol (Rosalio) 4 mg tablets,dose pack See Rx Instructions .ROUTE .COMPLEX Qty: 21 0RF Rx Instructions: orally per package directions albuterol sulfate 90 mcg/actuation HFA aerosol inhaler 2 inh INHALATION Q4H PRN (Reason: shortness of breath or wheezing) Qty: 6.7 1RF doxycycline hyclate 100 mg tablet 100 mg PO BID 7 Days Qty: 14 0RF codeine-guaifenesin 10-100 mg/5 mL liquid 5 ml PO Q4H PRN (Reason: cough) Qty: 118 0RF No Action aspirin 325 mg tablet 325 mg PO DAILY lisinopril 40 mg tablet 40 mg PO DAILY Qty: 90 3RF meloxicam 15 mg tablet 15 mg PO DAILY PRN (Reason: Abdominal Discomfort) Qty: 30 11RF tramadol 50 mg tablet See Rx Instructions .ROUTE .COMPLEX PRN (Reason: Pain) Qty: 90 5RF Rx Instructions: TAKE 1 TO 2 TABLETS BY MOUTH EVERY 4 TO 6 HOURS NEEDED FOR PAIN max of SIX PER DAY simvastatin 20 mg tablet 10 mg PO DAILY Rx Instructions: TAKE ONE-HALF TABLET BY MOUTH ONCE DAILY fluticasone propionate 50 mcg/actuation spray,suspension 2 spray intranasal DAILY Rx Instructions: USE 2 SPRAYS IN BOTH NOSTRILS ONCE DAILY escitalopram oxalate 20 mg tablet 20 mg PO DAILY Rx Instructions: TAKE 1 TABLET BY MOUTH ONCE DAILY Discharge Orders: Discharge ED (Routine); Ordered 03/02/24 Ordered By: Haja Conteh Referrals: Joao Zuñiga MD [Primary Care Provider] - 1-3 days Patient Instructions: Acute Bronchitis (ED), Opioid Safety, Pain Management Activity Restrictions/Additional Instructions: Use cough medicine as needed as directed. Use the albuterol inhaler every 4 hours while awake for the first 24 hours, then as needed. Other medications as directed. Return for worsening shortness of breath despite treatment, chest discomfort, fever despite 2-3 doses of antibiotics, other concerning symptoms. See your doctor next week. 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
== END 2024-03-02 23:32 | disposition home or self-care (01) ==
PROVIDERS: Emergency Provider Emergency Medicine; PCP Family Medicine
DX: J20.9 Acute bronchitis, unspecified (principal); Z11.52 Encounter for screening for COVID-19; Z79.82 Long term (current) use of aspirin; I10 Essential (primary) hypertension; I25.10 Atherosclerotic heart disease of native coronary artery without angina pectoris; Z87.891 Personal history of nicotine dependence
CPT/HCPCS: 71045; 80048; 85025; 87426; 87804; 94640; 96374; 99284; J1100

== ENCOUNTER 2024-05-14 09:00 | Outpatient (CLI) | payer MEDICARE, SELFPAY ==
--- NOTE | 2024-05-14 09:06 | FL_ITS ---
WS: [id number] Exam: FL barium swallow [id number] Date/Time of Exam: 05/14/2024 9:06 AM Reason For Exam: DYSPHAGIA Fluoroscopy time: minutes # of spot films: Oral phase of swallowing was normal however the patient experienced 1 mild episode of penetration and aspiration during the exam. There was no sign of esophageal mass or stricture. Motility was normal. The esophagus is not displaced. No hiatal hernia or reflux was seen. Recommendations: Modified barium swallow study would be recommended for further work-up. FL/FL barium swallow [id number] IMPRESSION: 1. The patient experienced 1 episode of penetration into the laryngeal inlet an d mild aspiration into the upper trachea during the exam. 2. The esophagus was patent without mass or stricture. Normal esophageal motili ty and no reflux was observed.
== END 2024-05-14 09:01 | disposition home or self-care (01) ==
LOC: RAD 09:00
PROVIDERS: PCP Family Medicine; Visit Provider Otolaryngology
DX: R05.3 Chronic cough (principal); R13.10 Dysphagia, unspecified
CPT/HCPCS: 74220

== ENCOUNTER 2024-05-21 09:46 | Outpatient (CLI) | payer MEDICARE, SELFPAY ==
--- NOTE | 2024-05-21 09:50 | FL_ITS ---
WS: [id number] FL barium swallow modifd [id number] REASON FOR EXAM: Other dysphagia FLUOROSCOPY TIME: 2min [phone] # OF SPOT FILMS: None FINDINGS: Examination was supervised by the speech therapy department. Patient was examined in the sitting upright position in the lateral projection with swallowing of mul tiple varying consistencies of barium monitored fluoroscopically and video recorded. A detailed report of the swallowing will be rendered by the speech therapy department. FL/FL barium swallow modifd [id number] IMPRESSION: Modified barium swallow as above.
== END 2024-05-21 09:47 | disposition home or self-care (01) ==
LOC: RAD 09:47
PROVIDERS: PCP Family Medicine; Visit Provider Otolaryngology
DX: R13.19 Other dysphagia (principal)
CPT/HCPCS: 74230; 92611

== ENCOUNTER → 2025-05-08 12:40 | Outpatient (BNVA) | payer MEDICARE, SELFPAY | PROVIDERS: PCP Family Medicine; Visit Provider Family Medicine | DX: I10 Essential (primary) hypertension (principal); I25.10 Atherosclerotic heart disease of native coronary artery without angina pectoris; R53.83 Other fatigue; I45.10 Unspecified right bundle-branch block | CPT/HCPCS: 80053; 80061; 83880; 84443; 85025 ==

== ENCOUNTER 2025-06-12 13:15 | Outpatient (CLI) | payer MEDICARE, SELFPAY ==
--- NOTE | 2025-06-12 13:30 | USCV_ITS ---
Sweetie Arvizu Age: 75 Gender: M : 1950 Exam Date: 06/12/2025 13:30 Ordering Phys: Joao Zuñiga MD Technologist: Exam Location: [facility] [place] Indication: cp sob BP: 130 / 75 HR: 93 Rhythm: Sinus Technical Quality: Adequate MEASUREMENTS (Male / Female) Normal Values 2D ECHO LV Diastolic Diameter PLAX 4.2 cm 4.2 - 5.9 / 3.9 - 5.3 cm IVS Diastolic Thickness 1.3 cm 0.6 - 1.0 / 0.6 - 0.9 cm IVS Systolic Thickness 1.6 cm LVPW Diastolic Thickness 1.4 cm 0.6 - 1.0 / 0.6 - 0.9 cm LVPW Systolic Thickness 2.1 cm LVOT Diameter 2.1 cm LV Ejection Fraction 2D Teich 61.5 % LV Ejection Fraction MOD 4C 56.4 % LV Ejection Fraction MOD 2C 62.1 % LV Ejection Fraction 2C AL 62.5 % LA Diameter 4.0 cm RA Systolic Volume 4C AL 56.4 ml RA Systolic Volume 4C MOD 55.2 ml Aorta at Sinotubular Diameter 3.0 cm IVC Diameter 1.2 cm M-MODE LA Ao Ratio MM 1.4 AV Cusp Separation MM 2.3 cm DOPPLER AV Peak Velocity 108.3 cm/s LVOT Peak Velocity 77.0 cm/s AV Area Cont Eq vti 3.0 cm squared AV Area Cont Eq pk 2.4 cm squared MV Peak Velocity 95.0 cm/s MV Area PHT 1.9 cm squared Mitral E to A Ratio 0.9 TV Peak Velocity 256.0 cm/s TR Peak Velocity 281.0 cm/s TR Peak Gradient 31.6 mmHg TV Peak E Velocity 77.0 cm/s PV Peak Velocity 136.0 cm/s FINDINGS Left Ventricle Moderately increased left ventricular cavity size. Mild to moderately decreased left ventricular systolic function. Left ventricular ejection fraction is estimated at 45-50 %. Global left ventricular hypokinesis. Grade I/IV diastolic dysfunction (abnormal relaxation filling pattern), normal to mildly elevated filling pressures. Right Ventricle The right ventricle is normal in size and function. Right Atrium The right atrium is normal in size. Left Atrium Mildly increased left atrial size. Mitral Valve Mildly thickened mitral valve. No mitral valve stenosis. Mild mitral valve regurgitation. Aortic Valve Mild aortic valve calcification. No aortic valve stenosis. Mild aortic valve regurgitation. Tricuspid Valve Tcvg-ln-nueaosbu tricuspid valve regurgitation. Pulmonic Valve Structurally normal pulmonic valve without significant stenosis. There is no pulmonic regurgitation. Pericardium Normal pericardium without effusion. Aorta Normal ascending aorta dimension. IVC The inferior vena cava appears normal. CONCLUSIONS Moderately increased left ventricular cavity size. Mild to moderately decreased left ventricular systolic function. Left ventricular ejection fraction is estimated at 45-50 %. Global left ventricular hypokinesis. Grade I/IV diastolic dysfunction (abnormal relaxation filling pattern), normal to mildly elevated filling pressures Mildly increased left atrial size. Mildly thickened mitral valve. No mitral valve stenosis. Mild mitral valve regurgitation. Mild aortic valve calcification. No aortic valve stenosis. Mild aortic valve regurgitation. Ykwl-mq-yiztxmjs tricuspid valve regurgitation. There is no pericardial effusion. Right atrial pressure is around 5 mm of mercury. Rui Malone MD (Electronically Signed) Final Date: 13 June 2025 22:59 S
== END 2025-06-12 13:16 | disposition home or self-care (01) ==
LOC: RAD 13:17
PROVIDERS: PCP Family Medicine; Visit Provider Family Medicine
DX: R07.9 Chest pain, unspecified (principal); I10 Essential (primary) hypertension; I25.10 Atherosclerotic heart disease of native coronary artery without angina pectoris; R53.83 Other fatigue; I45.10 Unspecified right bundle-branch block; I51.89 Other ill-defined heart diseases; I51.7 Cardiomegaly; I34.0 Nonrheumatic mitral (valve) insufficiency; I35.8 Other nonrheumatic aortic valve disorders; I35.1 Nonrheumatic aortic (valve) insufficiency; R93.1 Abnormal findings on diagnostic imaging of heart and coronary circulation
CPT/HCPCS: 93306

== ENCOUNTER 2025-07-07 08:52 | Outpatient (CLI) | payer MEDICARE, SELFPAY ==
[2025-07-07 09:00] VITALS: BMI 23.6
--- NOTE | 2025-07-07 09:00 | ECG_ITS ---
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 Baseline heart rate was 42 beats per minute. Baseline blood pressure was 114/60 millimeters of mercury. Target heart rate was 144 beats per minute. Maximum heart rate achieved was 115, which was 79% of the target heart rate. Maximum blood pressure was 181/100 millimeters of mercury. Total exercise time was 8 minutes 59 seconds. Maximum METs achieved was 10.2, maximum VO2 was 35.7. The reason for ending the test was maximum effort to achieve. The patient complained of shortness of breath during the stress test, which then resolved at the end of the test. ELECTROCARDIOGRAM: BASELINE: Showed sinus bradycardia, right bundle branch block normal axis, no significant ST-T changes at the baseline noted. EXERCISE: At the peak exercise level, no significant ST-T changes suggestive of ischemia noted. RECOVERY: During the recovery period, heart rate dropped appropriately. No significant ST-T changes in the recovery suggestive of ischemia noted. Possible Mobitz type II heart block CONCLUSION: 1. Exercise capacity fair. 2. Heart rate response was appropriate. 3. Blood pressure response was hypertensive. 4. Symptoms not suggestive of ischemia. 5. Electrocardiogram portion of the stress test was not suggestive of ischemia. Mobitz type II heart block was noted in the recovery phase 6. Nuclear scan will be documented separately. Please note that because of 100 achievements of maximum heart rate specificity and sensitivity of the EKG portion of the stress test will be of low yield Electronically Signed On 08-02-2025 14:25:18 CDT by MARY SANCHEZ [email or web address]
--- NOTE | 2025-07-07 09:00 | NMCV_ITS ---
NM neymar perf SPECT r/s* [id number] Sweetie Arvizu Age: 75 Gender: M : 1950 Exam Date: 07/07/2025 10:01 Ordering Phys: Joao Zuñiga MD Technologist: ISABEL Blake Exam Location: [facility] Indications: cp STRESS TEST Please see separate stress test report in [facility] for full findings IMAGE PROTOCOL Rest/Stress 1 Exercise Day Radiopharmaceutical Dose (mCi) Administration Site Administered by Rest: Tc-99m 10.5 IV Sheyla Walsh, CUSTOMER MARKETING MANAGER Sestamibi Stress:Tc-99m 32.9 IV Sheyla Walsh, CUSTOMER MARKETING MANAGER Sestamibi Rest: 07-Jul-2025 60 Discovery 630 Stress: 07-Jul-2025 30 Discovery 630 Radiopharmaceutical was injected at 79 % maximum heart rate. Images obtained in supine and prone position. SPECT RESULTS Technical Quality: Good Raw Data Analysis: Normal Image Corrections: No attenuation or motion correction applied Summed Stress Score: 0 Summed Rest Score: 0 Summed Difference Score: 0 PERFUSION FINDINGS Small area of fixed perfusion defect noted in the apex and apical inferior wall suggestive of old myocardial infarction versus scarring. Medium sized area of patchy decreased tracer uptake noted in basal to distal inferior wall suggestive of artifact or old myocardial infarction. FUNCTIONAL RESULTS (calculated via Gated SPECT) Stress Image LV EF (%): 57 Stress EDV (mL):133 TID: 1 Stress ESV (mL):57 FUNCTIONAL FINDINGS: There is normal left ventricular systolic function. IMPRESSIONS This study is negative for ischemia EKG segment will be documented separately. Rui Malone MD (Electronically Signed) Final Date: 07 July 2025 19:46 S
[2025-07-07 11:13] VITALS: BP 143/80; PULSE 70
== END 2025-07-07 08:53 | disposition home or self-care (01) ==
PROVIDERS: PCP Family Medicine; Visit Provider Family Medicine
DX: R07.9 Chest pain, unspecified (principal); R00.1 Bradycardia, unspecified; R93.1 Abnormal findings on diagnostic imaging of heart and coronary circulation
CPT/HCPCS: 36415; 78452; 93017; A9500

== ENCOUNTER 2025-10-13 11:17 | Inpatient (IN) | payer MEDICARE, SELFPAY ==
[2025-10-13] VITALS (9 sets, daily range): BP systolic 92–133; BP diastolic 53–74; PULSE 59–106; RESP 13–19; TEMP 36.7–36.8; O2SAT 94–99; BMI 24.3
--- NOTE | 2025-10-13 11:21 | XRR_ITS ---
PROCEDURE INFORMATION: Exam: XR Chest Exam date and time: 10/13/2025 11:35 AM Age: 75 years old Clinical indication: Cough; Additional info: CVA TECHNIQUE: Imaging protocol: Radiologic exam of the chest. Views: 1 view. COMPARISON: CR XR chest 1V portable [id number] 03/02/2024 10:28 PM FINDINGS: Lungs: Mild left retrocardiac opacity. Pleural spaces: Unremarkable. No gross pleural effusion. No pneumothorax. Heart/Mediastinum: There is stable cardiomegaly. Bones/joints: Unremarkable. XR/XR chest 1V portable [id number] IMPRESSION: 1. Mild left retrocardiac opacity concerning for atelectasis versus infiltrate.
--- NOTE | 2025-10-13 11:21 | CTR_ITS ---
PROCEDURE INFORMATION: Exam: CT Head Without Contrast Exam date and time: 10/13/2025 11:24 AM Age: 75 years old Clinical indication: Stroke-like symptoms; Other: Symptoms of acute stroke TECHNIQUE: Imaging protocol: Computed tomography of the head without contrast. Radiation optimization: All CT scans at this facility use at least one of these dose optimization techniques: automated exposure control; mA and/or kV adjustment per patient size (includes targeted exams where dose is matched to clinical indication); or iterative reconstruction. Other technique: STROKE PROTOCOL was implemented. COMPARISON: No relevant prior studies available. RADIATION DOSE METRICS: Total DLP (mGy-cm): 1134.1 FINDINGS: Tubes, catheters and devices: Postoperative changes to the right mastoid with presence of a cochlear implant. Brain: Cerebellar tonsils are in normal anatomic position. There is moderate diffuse cerebral atrophy. Cerebral ventricles: No ventriculomegaly. Pituitary gland and sella: Sella is unremarkable. Paranasal sinuses: Paranasal sinuses are unremarkable. Mastoid air cells: The left mastoid air cells are well aerated. Orbital cavities: Orbits are unremarkable. Bones: Unremarkable. No acute fracture. Soft tissues: The soft tissues are unremarkable. Vasculature: Unremarkable. CT/CT head thrombolytic [id number] IMPRESSION: No acute intracranial pathology. ASSESSMENT: ASPECTS ([place] Stroke Program Early CT Score) is 10.
--- NOTE | 2025-10-13 11:21 | CTR_ITS ---
PROCEDURE INFORMATION: Exam: CTA Head With Contrast, Arteriography Exam date and time: 10/13/2025 11:27 AM Age: 75 years old Clinical indication: Stroke-like symptoms; Other: Symptoms of acute stroke; Additional info: CVA TECHNIQUE: Imaging protocol: Computed tomographic angiography of the head with contrast. Exam focused on the arteries. 3D rendering (Not supervised by radiologist): MIP and/or 3D reconstructed images were created by the technologist. Radiation optimization: All CT scans at this facility use at least one of these dose optimization techniques: automated exposure control; mA and/or kV adjustment per patient size (includes targeted exams where dose is matched to clinical indication); or iterative reconstruction. Contrast material: [id number]; Contrast volume: 100 ml; Contrast route: INTRAVENOUS (IV); COMPARISON: CT head thrombolytic [id number] 10/13/2025 11:24 AM RADIATION DOSE METRICS: Total DLP (mGy-cm): 338.3 FINDINGS: ANTERIOR CIRCULATION: Right internal carotid artery: Intracranial segment is patent with no significant stenosis. No aneurysm. Right middle cerebral artery: No occlusion or significant stenosis. No aneurysm. Right anterior cerebral artery: No occlusion or significant stenosis. No aneurysm. Left internal carotid artery: Intracranial segment is patent with no significant stenosis. No aneurysm. Left middle cerebral artery: No occlusion or significant stenosis. No aneurysm. Left anterior cerebral artery: No occlusion or significant stenosis. No aneurysm. POSTERIOR CIRCULATION: Right vertebral artery: No occlusion or significant stenosis. No aneurysm. Left vertebral artery: No occlusion or significant stenosis. No aneurysm. Basilar artery: No occlusion or significant stenosis. No aneurysm. Right posterior cerebral artery: No occlusion or significant stenosis. No aneurysm. Left posterior cerebral artery: No occlusion or significant stenosis. No aneurysm. Brain: No definite mass, mass effect, or midline shift. Cerebral ventricles: No ventriculomegaly. 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 No acute fracture. Soft tissues: Unremarkable. PROCEDURE INFORMATION: Exam: CTA Neck With Contrast Exam date and time: 10/13/2025 11:27 AM Age: 75 years old Clinical indication: Stroke-like symptoms; Other: Symptoms of acute stroke; Additional info: CVA TECHNIQUE: Imaging protocol: Computed tomographic angiography of the neck with contrast. Exam focused on the cervical segments of the vasculature. 3D rendering (Not supervised by radiologist): MIP and/or 3D reconstructed images were created by the technologist. Radiation optimization: All CT scans at this facility use at least one of these dose optimization techniques: automated exposure control; mA and/or kV adjustment per patient size (includes targeted exams where dose is matched to clinical indication); or iterative reconstruction. Contrast material: [id number]; Contrast volume: 100 ml; Contrast route: INTRAVENOUS (IV); COMPARISON: CT head thrombolytic [id number] 10/13/2025 11:24 AM RADIATION DOSE METRICS: Total DLP (mGy-cm): 338.3 FINDINGS: Right common carotid artery: No stenosis. No dissection or occlusion. Right internal carotid artery: No stenosis of the extracranial segment. No dissection or occlusion. Right external carotid artery: No occlusion or stenosis of the origin. Left common carotid artery: No stenosis. No dissection or occlusion. Left internal carotid artery: No stenosis of the extracranial segment. No dissection or occlusion. Left external carotid artery: No occlusion or stenosis of the origin. Right vertebral artery: No stenosis. No dissection or occlusion. Left vertebral artery: No stenosis. No dissection or occlusion. Soft tissues: Normal. No significant soft tissue swelling. Bones/joints: No acute fracture. There is advanced cervical spondylosis. Lungs: The visible portions of the lungs are unremarkable. CT/CT angio headneck* [id number] IMPRESSION: No large vessel significant stenosis or occlusion. IMPRESSION: No significant stenosis or occlusion. REFERENCES: NASCET CRITERIA. The degree of stenosis in the cervical segment of the internal carotid artery is based on NASCET criteria. Normal is no stenosis. Mild is less than 50% stenosis. Moderate is 50-69% stenosis. Severe is 70% to 99% stenosis. Total occlusion is no detectable patent lumen.
[2025-10-13 11:29] LABS: Hematocrit 48.1 % (37-53); Hemoglobin 16.40 g/dL (11.27-16.99); Mean Corpuscular HGB Conc 34.1 g/dL (30-55); Mean Corpuscular Hemoglobin 30.9 pg (27-33); Mean Corpuscular Volume 90.8 fl (82-101); Nucleated Red Blood Cells % 0 %; Platelet Count 236 10^3/cmm (157-399); Red Blood Count 5.30 10^6/uL (3.85-5.65); White Blood Count 23.07 10^3/uL (3.29-11.43)
--- NOTE | 2025-10-13 11:37 | W.ED.WEAKNES ---
HPI - Weakness General: Chief complaint: Weakness Stated complaint: headache - weakened acid dipper strength Time Seen by Provider: 10/13/25 11:19 Source: patient and EMS Mode of arrival: EMS Limitations: no limitations History of Present Illness: 75-year-old male states he went to bed last night around 9 or 1030 woke up at midnight having a right sided headache states he is having confusion at that time as well as having a hard time putting his hearing aid and went back to sleep woke up this still having a headache his confusion improved but is having some generalized weakness. Per EMS he had a difficult time walking. Here he is answer my questions appropriately denies any recent illness or fever states his headache is a 6 out of 10. Associated symptoms: Reports headache(s) Related Data Home Medications ?Medication ?Instructions ?Recorded ?Confirmed aspirin 325 mg tablet 325 mg PO DAILY 06/07/21 10/13/25 escitalopram oxalate 20 mg tablet 20 mg PO DAILY 10/13/25 10/13/25 fluticasone propionate 50 2 spray intranasal DAILY 10/13/25 10/13/25 mcg/actuation nasal spray,suspension (24 Hour Allergy Relief) lisinopril 40 mg tablet 40 mg PO DAILY 10/13/25 10/13/25 simvastatin 20 mg tablet 10 mg PO DAILY 10/13/25 10/13/25 tramadol 50 mg tablet 50 - 100 mg PO .Q4-6H PRN Pain 10/13/25 10/13/25 Previous Rx's ?Medication ?Instructions ?Recorded meloxicam 15 mg tablet 15 mg PO DAILY PRN Abdominal 01/29/25 Discomfort #30 tabs Allergies Allergy/AdvReac Type Severity Reaction Status Date / Time No Known Allergies Allergy Verified 03/14/24 10:39 Review of Systems Neuro: Reports: headache(s) [facility] PFSH: Medical History (Updated 10/13/25 @ 13:30 by Sunshine Monge MD) Chronic back pain Hypertension Hypercholesteremia Carpal tunnel syndrome, bilateral upper limbs [id number] Coronary artery disease Family History Denies family history of Anesthesia complication Social History Smoking and tobacco/nicotine status: never used tobacco/nicotine Alcohol intake: current Alcohol intake frequency: 0-2 Drinks per Day Alcohol type: beer Physical Exam Const: COMMON NORMALS: patient oriented x3 HENMT: COMMON NORMALS: normocephalic and atraumatic HEAD & SCALP: normocephalic and atraumatic Eye: COMMON NORMALS: Equal, round and reactive pupils present and EOMs intact bilaterally PUPIL: Yes Equal, round and reactive pupils present Neck/C-Spine: COMMON NORMALS: full ROM and supple Chest: COMMONS NORMALS: normal inspection of the chest and normal palpation of entire chest wall Resp: COMMON NORMALS: normal respiratory effort, No retractions, No use of accessory muscles and clear to auscultation bilaterally AUSCULTATION: clear to auscultation bilaterally Cardio: COMMON NORMALS: regular rate, regular rhythm and No murmurs present (Cardio) RATE: regular rate RHYTHM: regular rhythm GI: COMMON NORMALS: Normal to inspection, nondistended, normoactive bowel sounds present, Soft to palpation, non-tender and no masses PALPATION: Yes Soft to palpation Extremity: COMMON NORMALS: normal to inspection and full ROM Neuro: COMMON NORMALS: patient oriented x3, moves all extremities and no focal motor deficits Psych: COMMON NORMALS: mental status grossly normal, Normal thought process present and cooperative THOUGHT PROCESS: Normal thought process present Skin: COMMON NORMALS: no rashes or lesions noted and no wounds GENERAL SKIN EXAM: no rashes or lesions noted Course Vital Signs: Vital signs: Vital Signs Temperature 98.3 F 10/13/25 11:17 Pulse Rate 65 10/13/25 12:52 Respiratory Rate 13 10/13/25 12:52 Blood Pressure 128/71 10/13/25 12:52 Pulse Oximetry 99 10/13/25 12:52 Oxygen Delivery Me thod Room Air 10/13/25 12:52 MDM - Weakness Medical Decision Making Patient presents here. Confusion throughout the night his confusion has since improved he is answer my questions here appropriately states he does feel generally weak and is have a hard time ambulating he had no focal deficits here head CT along with CTA were both negative he is not a lytic candidate his last known normal was last night. Chest x-ray here showed possible slight pneumonia reviewed and interpreted by me. I did interpret his EKG as well as showed normal sinus rhythm heart rate [address] elevation QRS 172 QTc 538. Differential includes stroke, intracerebral hemorrhage, infection. Patient likely has infection as he has an elevated white count in the 20s consistent with sepsis he did receive IV sepsis bolus his vitals here have been improved did give him IV antibiotics along with blood culture spoke to hospitalist Dr. Alanis who will admit. Medical Records I reviewed the patient's medical records. Lab Data I reviewed the patient's lab results. 10/13/25 11:07 10/13/25 11:07 Radiology Impressions Chest X-Ray 10/13/25 11:21 IMPRESSION: 1. Mild left retrocardiac opacity concerning for atelectasis versus infiltrate. Head CT 10/13/25 11:21 IMPRESSION: No acute intracranial pathology. ASSESSMENT: ASPECTS ([place] Stroke Program Early CT Score) is 10. ADDENDUM: 10/13/25 1148 THIS REPORT CONTAINS FINDINGS THAT MAY BE CRITICAL TO PATIENT CARE. The findings were verbally communicated via telephone conference with SUNSHINE MONGE at 11:46 AM COIL BINDER on 10/13/2025. The findings were acknowledged and understood. Head/Neck CTA 10/13/25 11:21 IMPRESSION: No large vessel significant stenosis or occlusion. IMPRESSION: No significant stenosis or occlusion. REFERENCES: NASCET CRITERIA. The degree of stenosis in the cervical segment of the internal carotid artery is based on NASCET criteria. Normal is no stenosis. Mild is less than 50% stenosis. Moderate is 50-69% stenosis. Severe is 70% to 99% stenosis. Total occlusion is no detectable patent lumen. ADDENDUM: 10/13/25 8928 THIS REPORT CONTAINS FINDINGS THAT MAY BE CRITICAL TO PATIENT CARE. The findings were verbally communicated via telephone conference with SUNSHINE MONGE at 12:07 PM COIL BINDER on 10/13/2025. The findings were acknowledged and understood. Laboratory Results WBC 23.07 10^3/uL (3.29-11.43) H 10/13/25 11:07 RBC 5.30 10^6/uL (3.85-5.65) 10/13/25 11:07 Hgb 16.40 g/dL (11.27-16.99) 10/13/25 11:07 Hct 48.1 % (37-53) 10/13/25 11:07 MCV 90.8 fl (82-101) 10/13/25 11:07 MCH 30.9 pg (27-33) 10/13/25 11:07 MCHC 34.1 g/dL (30-55) 10/13/25 11:07 RDW 12.1 % (12.1-15.1) 10/13/25 11:07 Plt Count 236 10^3/cmm (157-399) 10/13/25 11:07 MPV 9.8 fL (7.4-10.4) 10/13/25 11:07 Neut % (Auto) 92.4 % 10/13/25 11:07 Lymph % (Auto) 2.1 % 10/13/25 11:07 Foster % (Auto) 4.2 % 10/13/25 11:07 Eos % (Auto) 0.0 % 10/13/25 11:07 Baso % (Auto) 0.2 % 10/13/25 11:07 Neut # (Auto) 21.30 10^3/uL (1.8-7.7) H 10/13/25 11:07 Lymph # (Auto) 0.5 10^3/uL (0.8-4.8) L 10/13/25 11:07 Foster # (Auto) 1.0 10^3/uL (0.2-0.9) H 10/13/25 11:07 Eos # (Auto) 0.0 10^3/uL (0.0-0.8) 10/13/25 11:07 Baso # (Auto) 0.1 10^3/uL (0.0-0.1) 10/13/25 11:07 Nucleated RBC % (auto) 0 % 10/13/25 11:07 Nucleated RBCs # 0.0 /100WBC 10/13/25 11:07 PT 12.70 SECONDS (12.1-14.9) 10/13/25 11:07 INR 0.89 (0.8-1.2) 10/13/25 11:07 APTT 26.5 SECONDS (23.9-36.7) 10/13/25 11:07 Sodium 134 mmol/L (136-145) L 10/13/25 11:07 Potassium 3.8 mmol/L (3.5-5.1) 10/13/25 11:07 Chloride 95 mmol/L (98-107) L 10/13/25 11:07 Carbon Dioxide 27 mmol/L (22-29) 10/13/25 11:07 Anion Gap 15.8 (5-19) 10/13/25 11:07 BUN 16 mg/dL (8-23) 10/13/25 11:07 Creatinine 0.9 mg/dL (0.7-1.2) 10/13/25 11:07 GFR Calculation Not Reportable 10/13/25 11:07 Glucose 111 mg/dL (65-115) 10/13/25 11:07 POC Glucose 120 mg/dL (70-110) H 10/13/25 11:22 Calculated Osmolality 280 mOsm/kg (285-295) L 10/13/25 11:07 Lactic Acid 2.2 mmol/L (0.5-2.2) 10/13/25 11:07 Calcium 10.0 mg/dL (8.5-10.5) 10/13/25 11:07 Total Bilirubin 0.9 mg/dL (0.15-1.2) 10/13/25 11:07 AST 34 U/L (0-40) 10/13/25 11:07 ALT 21 U/L (0-41) 10/13/25 11:07 Alkaline Phosphatase 63 U/L (40-130) 10/13/25 11:07 Total Protein 8.0 g/dL (6.6-8.7) 10/13/25 11:07 Albumin 4.7 g/dL (3.5-5.2) 10/13/25 11:07 Globulin 3.3 g/dL (1.3-4.6) 10/13/25 11:07 Urine Color Yellow (Yellow) 10/13/25 12:33 Urine Appearance Clear (CLEAR) 10/13/25 12:33 Urine pH 7.5 (5-7) 10/13/25 12:33 Ur Specific [place] 1.065 (1.005-1.030) H 10/13/25 12:33 Urine Protein Negative (Negative) 10/13/25 12:33 Urine Glucose (UA) Negative (Normal) 10/13/25 12:33 Urine Ketones Negative (Negative) 10/13/25 12:33 Urine Blood Non-haemolysed trace (Negative) 10/13/25 12:33 Urine Nitrate Negative (Negative) 10/13/25 12:33 Urine Bilirubin Negative (Negative) 10/13/25 12:33 Urine Urobilinogen 0.2 mg/dL (Negative) 10/13/25 12:33 Ur Leukocyte Esterase Negative (Negative) 10/13/25 12:33 Urine RBC 3-5 /hpf (0-2) 10/13/25 12:33 Urine WBC 0-5 /hpf (0-5) 10/13/25 12:33 Ur Squamous Epith Cells 0-5 /hpf (0-5) 10/13/25 12:33 Amorphous Sediment Not Reportable 10/13/25 12:33 Urine Bacteria None seen /hpf (NONE) 10/13/25 12:33 Hyaline Casts 0-4 /lpf H 10/13/25 12:33 Urine Opiates Screen Negative ng/mL (Negative) 10/13/25 12:33 Ur Barbiturates Screen Negative ng/mL (Negative) 10/13/25 12:33 Ur Phencyclidine Scrn Negative ng/mL (Negative) 10/13/25 12:33 Ur Amphetamines Screen Negative ng/mL (Negative) 10/13/25 12:33 U Benzodiazepines Scrn Negative ng/mL (Negative) 10/13/25 12:33 Urine Cocaine Screen Negative ng/mL (Negative) 10/13/25 12:33 U Marijuana (THC) Screen Positive ng/mL (Negative) H 10/13/25 12:33 All radiology interpretation(s) finalized by discharge EKG Data EKG 1: I personally reviewed and interpreted this EKG as follows: EKG interpretation date: 10/13/25 EKG interpretation time: 11:48 Interpretation: nsr hr [address] elevation qrs 172 qtc 538 Discharge Plan Discharge Patient Disposition: Admitted As Inpatient Clinical Impression: Altered mental status, Sepsis Condition: Stable Coding Level of Care Code ED Raw Mill Operator for Haylee Garcia NIH stroke score NIHSS Level Of Consciousness - 1a: 0 Level Of Consciousness Questions - 1b: Both Correct Level Of Consciousness Commands - 1c: Both Correct Best Gaze - 2: Normal Visual Hitchcock - 3: No Visual Loss Facial Palsy - 4: Normal Motor Arm Right - 5: No Drift Motor Arm Left - 5: No Drift Motor Leg Right - 6: No Drift Motor Leg Left - 6: No Drift Limb Ataxia - 7: Absent Sensory - 8: Normal Best Language - 9: No Aphasia Dysarthia - 10: Normal Extinction And Inattention - 11: 0 Score Total Score: 0
[2025-10-13] MEDS: iohexol 350 mg/mL 500 mL Btl (per mL) IV (11:42)
[2025-10-13 11:45] LABS: INR 0.89 (0.8-1.2); Prothrombin Time 12.70 SECONDS (12.1-14.9)
[2025-10-13 11:46] LABS: Partial Thromboplastin Time 26.5 SECONDS (23.9-36.7)
--- NOTE | 2025-10-13 11:48 | ECG_ITS ---
[facility] Date: 2025-10-13 Pat Name: Sweetie Arvizu Department: Room: Gender: Male Tobacco Conditioner: : 1950 Requested By: Hellen Spencer Order Number: [id number] Yodit MD: Ceferino Marino M.D. Measurements Intervals [place] Rate: 91 P: 48 FL: 267 QRS: 11 QRSD: 172 T: 9 QT: 490 QTc: 603 Interpretive Statements SINUS RHYTHM WITH FIRST DEGREE AV BLOCK WITH OCCASIONAL VENTRICULAR PREMATURE COMPLEXES POSSIBLE LEFT ATRIAL ENLARGEMENT [-0.1mV P-WAVE IN V1/V2] INTRAVENTRICULAR CONDUCTION DELAY [130+ ms QRS DURATION] POSSIBLE INFERIOR MYOCARDIAL INFARCTION , OF INDETERMINATE AGE [30 ms Q WAVE IN II/aVF] No previous ECG available for comparison Electronically Signed On 10-13-2025 17:49:15 INSTRUCTIONAL INTERVENTIONIST by Ceferino Marino M.D. [email or web address]
[2025-10-13 11:51] LABS: Alanine Aminotransferase 21 U/L (0-41); Albumin Level 4.7 g/dL (3.5-5.2); Alkaline Phosphatase 63 U/L (40-130); Anion Gap 15.8 (5-19); Aspartate Amino Transferase 34 U/L (0-40); Blood Urea Nitrogen 16 mg/dL (8-23); Calcium 10.0 mg/dL (8.5-10.5); Carbon Dioxide 27 mmol/L (22-29); Chloride 95 mmol/L (98-107); Globulin 3.3 g/dL (1.3-4.6); Glucose 111 mg/dL (65-115); Osmolality Calculated 280 mOsm/kg (285-295); Potassium 3.8 mmol/L (3.5-5.1); Sodium 134 mmol/L (136-145); Total Protein 8.0 g/dL (6.6-8.7)
--- OUTSIDE RECORDS SUMMARY | 2025-10-13 12:08 | XMS_ITS | Clinical Summary ---
Author Organization [facility] Address [address] [place]: Epic Prelude ADT [place] [address] Care Team Providers Care Floatlight Loading Supervisor Name Role Phone Joao Zuñiga MD Primary Care Provider [phone] Allergies No known active allergies Medications meloxicam (MOBIC) 15 mg tablet Take 15 mg by mouth daily. Active lisinopriL (PRINIVIL) 10 mg tablet Take 10 mg by mouth daily. Active simvastatin (ZOCOR) 10 mg tablet Take 10 mg by mouth daily with supper. Active escitalopram oxalate (LEXAPRO) 20 mg tablet Take 20 mg by mouth daily. Active traMADoL (ULTRAM) 50 mg tablet Take 100 mg by mouth every 6 hours as needed for Pain. Active fluticasone propionate (FLONASE) 50 mcg/spray [place], Suspension nasal inhaler Administer 2 Sprays in each nostril daily. Active Active Problems No known active problems Social History Tobacco Use Types Packs/Day Years Used Date Smoking Tobacco: Former Smokeless Tobacco: Former Alcohol Use Standard Drinks/Week Comments Yes 14 (1 standard drink = 0.6 oz pu re alcohol) Sex and Gender Information Value Date Recorded Sex Assigned at Not on file Legal Sex Male 9:44 PM HISTORIAN RESEARCH ASSISTANT Gender Identity Not on file Sexual Orientation Not on file Last Filed Vital Signs Vital Sign Reading Time Taken Comments Blood Pressure 135/75 02/09/2022 11:14 AM CDT Pulse 56 02/09/2022 11:14 AM CDT Temperature 36.6 C (97.9 F) 11/15/2021 1:40 PM HISTORIAN RESEARCH ASSISTANT Respiratory Rate 16 11/15/2021 2:40 PM HISTORIAN RESEARCH ASSISTANT Oxygen Saturation 96% 11/15/2021 2:40 PM HISTORIAN RESEARCH ASSISTANT Inhaled Oxygen Concentration - - Weight 70.3 kg (155 lb) 02/09/2022 11:14 AM CDT Height 175.3 cm (5' 9 ) 02/09/2022 11:14 AM CDT Body Mass Index 22.89 02/09/2022 11:14 AM CDT Plan of Treatment Health Maintenance Due Date Last Done Comments DTAP/TDAP/TD VACCINES (1 - Tdap) 1968 PNEUMOCOCCAL VACCINE 50+ YEARS (1 of 1 - PCV) 04/30/19 99 ZOSTER VACCINE (1 of 2) 1999 RSV VACCINE (60+ or ) (1 - 1-dose 75+ series) 2024 INFLUENZA VACCINE (#1) 2025 Medical Devices Implanted Type Area Boot Trimmer Device Identifier Shelf Expiration Date Model / Serial / Lot Comp Fngr Mcp Sz30 [id number] - [id number] Implanted:Qty: 1 on 11/15/2021 by Shayan Cee MD at [facility] Left: Hand [employer] 09/19/2023 [id number] / / [id number] Insurance [facility] [id number] Care Teams Floatlight Loading Supervisor Relationship Specialty Start Date End Date Joao Zuñiga MD [address] [place] [address] PCP - General Family Practice 11/15/21
--- OUTSIDE RECORDS SUMMARY | 2025-10-13 12:08 | XMS_ITS | Clinical Summary ---
Author Organization [facility] Address [address] [place] [address] Phone Care Team Providers Care Volunteer Recruitment Coordinator Name Role Phone Unavailable Primary Care Provider Unavailabl e Social History Tobacco Use Types Packs/Day Years Used Date Smoking Tobacco: Never Assessed Sex and Gender Information Value Date Recorded Sex Assigned at Not on file Legal Sex Male 7:39 AM CDT Gender Identity Not on file Sexual Orientation Not on file Plan of Treatment Health Maintenance Due Date Last Done Comments DTAP/TDAP/TD VACCINES (1 - Tdap) 1968 PNEUMOCOCCAL VACCINE 50+ YEARS (1 of 1 - PCV) 04/30/19 99 ZOSTER VACCINE (1 of 2) 1999 RSV VACCINE (60+ or ) (1 - 1-dose 75+ series) 2024 INFLUENZA VACCINE (#1) [address] [place] [id number] MEDICARE PART A AND B [facility] [place] [address]
[2025-10-13 12:23] LABS: Lactic Sepsis W/Reflex 2.2 mmol/L (0.5-2.2)
[2025-10-13 12:42] LABS: Glucose Urine UA Negative (Normal); Nitrate Urine Negative (Negative)
[2025-10-13 12:47] LABS: Add Urine Microscopic? YES
[2025-10-13 12:49] LABS: PCP Screen Urine Negative (Negative)
[2025-10-13 12:55] LABS: Specific Gravity, Urine 1.065 (1.005-1.030)
[2025-10-13] MEDS: cefTRIAXone 1,000 mg SDV 1000 MG IVP (12:59)
[2025-10-13 13:51] LABS: Reflex Lactate Order REFLEX LACTIC ORDERD
[2025-10-13 14:57] LABS: Lactic Acid level (Lactate) 1.3 mmol/L (0.5-2.2)
--- NOTE | 2025-10-13 15:41 | P.HP_ITS ---
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 Woke up with a headache; confusion has improved since arrival but generalized weakness was noted. Emergency medical services (EMS) reported difficulty walking. In the emergency department (ED), he was answering questions appropriately and was not found to have focal neurologic deficits. Reports ongoing mild headache. Denies fever. reports he was more confused in the morning but is a lot better now. He typically does not get headaches and had difficulty figuring out his cochlear implant this morning. Reports his blood pressure felt lower than usual. Denies vomiting or diarrhea. Chronic cough attributed to allergies. No recent changes to home medications. 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 Has a broken tooth awaiting extraction by oral surgeon; was given antibiotics by dentist and appointment was scheduled for tomorrow but has been canceled due to current illness. Has a back stimulator and complains of pain behind the device when attempting morning exercises; pain limits lying down to exercise. Review of Systems 2 Const: Denies: fever(s), chills, body aches or malaise ENMT: Denies: throat pain Card: Denies: chest pain, edema, pre-syncope or dyspnea on exertion Resp: Reports: productive cough and non-productive cough; Denies: dyspnea, change in phlegm color or hemoptysis GI: Denies: abdominal pain, nausea, vomiting, diarrhea, constipation, hematochezia or melena : Denies: flank pain, difficulty urinating, urinary frequency or hematuria Musc: Denies: back pain, joint swelling or joint redness Skin/Breast: Denies: rash or new lesions Neuro: Reports: headache(s) and confusion Medications/Allergies Home Medications ?Medication ?Instructions ?Recorded ?Confirmed ?Last Taken ?Type aspirin 325 mg tablet 325 mg PO DAILY 06/07/2110/12/25 History meloxicam 15 mg tablet 15 mg PO DAILY PRN Abdominal 01/29/25 10/13/25 Unknown Rx Discomfort #30 tabs escitalopram oxalate 20 mg tablet 20 mg PO DAILY 10/1310/13/25 10/12/25 History fluticasone propionate 50 2 spray intranasal DAILY 10/13/25 10/12/25 History mcg/actuation nasal spray,suspension (24 Hour Allergy Relief) lisinopril 40 mg tablet 40 mg PO DAILY 10/13/2509/2110/12/25 History simvastatin 20 mg tablet 10 mg PO DAILY 10/13/2509/2110/12/25 History tramadol 50 mg tablet 50 - 100 mg PO .Q4-6H PRN Pa in 10/13/25 10/13/25 Unknown History Allergies Allergy/AdvReac Type Severity Reaction Status Date / Time No Known Allergies Allergy Verified 03/14/24 10:39 PFSH Acute 2 PFSH: Medical History Chronic back pain Hypertension Hypercholesteremia Carpal tunnel syndrome, bilateral upper limbs [id number] Coronary artery disease Family History Denies family history of Anesthesia complication Social History (Updated 10/13/25 @ 15:57 by Albin Alanis MD) Smoking and tobacco/nicotine status: former use of tobacco/nicotine Alcohol intake: current Alcohol intake frequency: 0-2 Drinks per Day Alcohol type: beer Substance/Drug Use: current Other substance/drug use details: Occ mj Vitals/I&O/Wt Last Vital Signs Temp 98.3 F 10/13/25 11:17 Pulse 66 10/13/25 15:38 Resp 14 10/13/25 14:08 BP 111/53 10/13/25 15:38 Pulse Ox 97 10/13/25 15:38 O2 Del Method Room Air 10/13/25 14:08 10/13/25 10/13/25 10/13/25 06:59 14:59 22:59 Intake Total 2750 / 2750 Balance 2750 / 2750 Weight last 48 hrs Weight 74.843 kg Physical Exam 2 Narrative: Accompanied by his Const: COMMON NORMALS: patient oriented x3 and alert GENERAL APPEARANCE: c ooperative ORIENTATION/CONSCIOUSNESS: Yes awake OTHER: Per his confusion has pretty much resolved. HENMT: COMMON NORMALS: oropharynx normal Neck/C-Spine: COMMON NORMALS: no JVD Resp: COMMON NORMALS: normal respiratory effort and clear to auscultation bilaterally AUSCULTATION: clear to auscultation bilaterally Cardio: COMMON NORMALS: no JVD, regular rhythm, S1 normal heart sound present, S2 normal heart sound present and No murmurs present (Cardio) RHYTHM: regular rhythm HEART SOUNDS: S1 normal heart sound present and S2 normal heart sound present GI: COMMON NORMALS: Normal to inspection, nondistended, normoactive bowel sounds present, Soft to palpation and non-tender PALPATION: Yes Soft to palpation Back/Pelvis: OTHER: Spine stimulator right lower back, without erythema, induration, fluctuance, any surrounding swelling or bruising. Extremity: COMMON NORMALS: no joint enlargement and no pedal edema Neuro: COMMON NORMALS: patient oriented x3 and moves all extremities S ENSORIUM/ORIENTATION: Yes alert OTHER: Awake and alert. Somewhat hard of hearing with cochlear implant. Brezinski and Kernig negative. Skin: COMMON NORMALS: no rashes or lesions noted GENERAL SKIN EXAM: no rashes or lesions noted Quick SOFA Score: Respiratory Rate: 14 Blood Pressure: 111/53 [place] Coma Scale: 15 qSOFA Score: 0 If qSOFA score 2 or greater, continue: Blood Pressure Mean: 85 Bilirubin (mg/dl): 0.9 Platelets (x10?/ml): 236 Creatinine (mg/dl): 0.9 Evaluation: Current stage of sepsis: ruled out/differential diagnosis S epsis stage criteria used: Sepsis-3 Crystalloid fluids: 30 mL/kg crystalloid fluids ordered and initiated within 3 hours Blood cultures ordered: Yes Focused Exam: Vital signs: Temp Pulse Resp BP Pulse Ox O2 Del Method 10/13/25 15:38 66 111/53 97 10/13/25 14:08 70 14 123/66 97 Room Air 10/13/25 12:52 65 13 128/71 99 Room Air 10/13/25 11:47 92 19 H 100/74 96 Room Air 10/13/25 11:17 98.3 F 106 H 16 92/64 95 Room Air Respiratory exam: CTA bilaterally Capillary refill: < 3 Seconds Skin exam: rashes/lesions noted, not diaphoretic and no mottling Date exam was performed: 10/13/25 Time exam was performed: 16:05 2 Sepsis Screen No Definite Risk Today, 14:08 Respiratory Rate, (12 - 18) 14 breaths/min Today, 14:08 Blood Pressure 111/53 mmHg Today, 15:38 [place] Coma Scale Score 15 Today, 13:21 Quick SOFA Score 0 Today, 14:08 SOFA Score: 2 [place] Coma Scale Score 15 Today, 13:21 Blood Pressure Mean 85 mmHg Today, 14:08 Total Bilirubin, (0.15-1.2) 0.9 mg/dL Today, 11:07 Platelet Count, (157-399) 236 10^3/cmm Today, 11:07 Creatinine, (0.7-1.2) 0.9 mg/dL Today, 11:07 Data 10/13/25 11:07 10/13/25 11:07 Micro: Microbiology 10/13/25 12:52 Blood Culture - Preliminary Blood SPECIMEN COLLECTED 10/13/25 12:33 Blood Culture - Preliminary Blood SPECIMEN COLLECTED A&P Assessment and plan 1. Altered mental status: Acute encephalopathy, possibly related to acute infection, possibly pneumonia with noted left lower lobe infiltrate, but has had tick bites recently as well, having some mild frontal headache. Acute encephalopathy for most part is resolving. Continue to reassess, reorient. Treat underlying conditions as below. Reviewed vitals, CBC, CMP, UA, UDS, CT head, head and neck CT, chest x- ray, ED provider note, discussed with ED provider. Morning confusion reported by ; improved by time of ED evaluation. Patient answering questions appropriately; no focal neurologic deficits. - Treat suspected pneumonia (as possible cause of confusion). Will empirically cover with Flagyl as well for possible dental infection, although no obvious abscess on CT head or CT head as per discussion with radiologist. - Monitor clinical status and oxygenation - Recheck blood counts tomorrow. Collect respiratory viral panel. - Consider lumbar puncture if fevers or worsening confusion occur, although this is complicated by prior spinal surgery and spinal stimulator. - Complained of pain around the spinal stimulator pocket. Imaged with ultrasound for any fluid collection. - Discussed discontinuation of NSAID for now with possibility of mild NSAID induced meningitis - Alternatively consider acute encephalopathy secondary to toxicity of tramadol as discussed with patient and his 2. Pneumonia: Possible pneumonia (retrocardiac atelectasis versus infiltrate on chest imaging) : ED noted mild left retrocardiac abnormality concerning for atelectasis versus infiltrate; meningeal signs negative; saturation 99% on room air. - Ceftriaxone and azithromycin administered after blood cultures collected. QTc is prolonged, monitor for worsening with azithromycin. Recheck EKG. - Continue antibiotic treatment for pneumonia with ceftriaxone, doxycycline. - Collect sputum culture, urine bacterial antigens, urine Legionella antigen. Collect respiratory viral panel. - Monitor oxygen saturation 3. Tick bite: Tick exposure (possible tick-borne illness) : Recent deer hunting and reported deer tick bites; no rash seen to suggest [place] spotted fever; possible Lyme disease or other tick-borne illness discussed. QT prolongation on EKG on my interpretation pending official read. - Send tick panel - Start doxycycline empirically (pending tick panel results) Plan: Broken tooth awaiting extraction : Broken tooth scheduled for extraction; dentist provided antibiotics; clinician did not see significant swelling around tooth. Without any signs of Rusty's angina. Without any local swelling, erythema. Tooth does look decayed, but otherwise without signs of local gum cellulitis or abscess. Per discussion with radiologist on additional review of CT head and head neck CTA similarly no additional findings apart from the tooth decay. - Provide antibiotic coverage for tooth - Coordinate timing of oral surgery depending on clinical improvement Back pain with pain at back stimulator site : Back stimulator present; pain behind device with exercise; site not red or swollen. - Consider ultrasound imaging of stimulator area to evaluate for collection Follow-up : Plan to monitor and reassess during hospitalization. - Follow up clinical status and oxygenation - Reassess need for lumbar puncture based on fevers/worsening - Aim for discharge if improving; canceled dental procedure for now HTN: Monitor blood pressures HLD CAD: Remote history of [place]. Chronically on aspirin 81 mg, continue PDMP PDMP Reviewed: Not Reviewed Attestations 2 Medical Necessity Statement*: Admission of over 2 midnights anticipated for assessment and management of acute encephalopathy, pneumonia, tick bite, possible tick borne infection, possible dental infection, and [place] with spinal stimulator, additional comorbidities. Diagnoses Altered mental status R41.82 Pneumonia J18.9 Tick bite W57.XXXA
--- NOTE | 2025-10-13 16:19 | ECG_ITS ---
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 Measurements Intervals Sabin Rate: 63 P: 53 IA: 284 QRS: 19 QRSD: 173 T: 20 QT: 455 QTc: 468 Interpretive Statements SINUS RHYTHM WITH FIRST DEGREE AV BLOCK INTRAVENTRICULAR CONDUCTION DELAY [130+ ms QRS DURATION] Compared to ECG 10/13/2025 11:48:27 Ventricular premature complex(es) no longer present Myocardial infarct finding no longer present Electronically Signed On 10-14-2025 10:20:24 PHYSICIAN PRACTICE CONSULTANT by Jaya Osuna M.D. [email or web address]
--- NOTE | 2025-10-13 16:21 | USR_ITS ---
PROCEDURE INFORMATION: Exam: US Left Limited Joint or Other Non-Vascular Extremity Structure Exam date and time: 10/13/2025 6:32 PM Age: 75 years old Clinical indication: Other: Assess for any collection of spinal stim pocket; Additional info: R lower back, assess for any collection of spinal stim pocket TECHNIQUE: Imaging protocol: US left limited joint or other nonvascular extremity structure. Real-time ultrasound with image documentation. Exam focused on the area of clinical interest. COMPARISON: No relevant prior studies available. FINDINGS: Soft tissues: Unremarkable. No loculated collections. US/US soft tissue/extremity [id number] IMPRESSION: Unremarkable US.
[2025-10-13] MEDS: doxycycline 100 MG in sodium chloride 0.9% (plus) 100 ML IV (16:37)
[2025-10-13] MEDS: metroNIDAZOLE IV 500 MG/100 ML PREMIX 100 MG IV (16:46)
[2025-10-13 17:21] LABS: Magnesium 1.9 mg/dL (1.7-2.3)
[2025-10-13 19:21] LABS: Coronavirus 229E,HKU1,NL63,OC4 Not Detected (NOT DETECT); Parainfluenza Virus Type 1 Not Detected (NOT DETECT); Parainfluenza Virus Type 2 Not Detected (NOT DETECT); Parainfluenza Virus Type 3 Not Detected (NOT DETECT); Parainfluenza Virus Type 4 Not Detected (NOT DETECT); SARS-COV-2 Not Detected (NOT DETECT)
[2025-10-14] MEDS: metroNIDAZOLE IV 500 MG/100 ML PREMIX 100 MG IV ×3 (00:39→15:00)
[2025-10-14 03:42] VITALS: BP 122/68; PULSE 65; RESP 18; TEMP 36.7; O2SAT 97
[2025-10-14] MEDS: doxycycline 100 MG in sodium chloride 0.9% (plus) 100 ML IV ×2 (05:39→15:01)
[2025-10-14] MEDS: cefTRIAXone 1,000 mg SDV 1000 MG IVP (05:40)
[2025-10-14] MEDS: ATORVASTATIN 20 MG TABLET PO (05:40)
[2025-10-14 06:12] LABS: Hematocrit 35.9 % (37-53); Hemoglobin 12.00 g/dL (11.27-16.99); Mean Corpuscular HGB Conc 33.4 g/dL (30-55); Mean Corpuscular Hemoglobin 31.3 pg (27-33); Mean Corpuscular Volume 93.7 fl (82-101); Nucleated Red Blood Cells % 0 %; Platelet Count 169 10^3/cmm (157-399); Red Blood Count 3.83 10^6/uL (3.85-5.65); White Blood Count 13.32 10^3/uL (3.29-11.43)
[2025-10-14 06:26] LABS: Alanine Aminotransferase 13 U/L (0-41); Albumin Level 3.1 g/dL (3.5-5.2); Alkaline Phosphatase 40 U/L (40-130); Anion Gap 11.2 (5-19); Aspartate Amino Transferase 21 U/L (0-40); Blood Urea Nitrogen 14 mg/dL (8-23); Calcium 8.2 mg/dL (8.5-10.5); Carbon Dioxide 25 mmol/L (22-29); Chloride 105 mmol/L (98-107); Globulin 2.1 g/dL (1.3-4.6); Glucose 104 mg/dL (65-115); Osmolality Calculated 285 mOsm/kg (285-295); Potassium 4.2 mmol/L (3.5-5.1); Sodium 137 mmol/L (136-145); Total Protein 5.2 g/dL (6.6-8.7)
[2025-10-14 07:48] VITALS: BP 131/59; PULSE 50; RESP 16; TEMP 36.6; O2SAT 96
[2025-10-14 10:48] LABS: Bacillus cereus group Not Detected (NOT DETECT); Bacillus subtillis group Not Detected (NOT DETECT); Corynebacterium Not Detected (NOT DETECT); Cutibacterium acnes (P.acnes) Not Detected (NOT DETECT); Enterococcus faecalis Not Detected (NOT DETECT); Enterococcus faecium Not Detected (NOT DETECT); Listeria Not Detected (NOT DETECT); Micrococcus Not Detected (NOT DETECT); Pan Candida Not Detected (NOT DETECT); Pan Gram-Negative Not Detected (NOT DETECT); Staphylococcus epidermidis Not Detected (NOT DETECT); Staphylococcus lugdunensis Not Detected (NOT DETECT); Staphylococcus species Not Detected (NOT DETECT); Streptococcus anginosus group Not Detected (NOT DETECT); Streptococcus pyogenes Not Detected (NOT DETECT); Streptococcus species Not Detected (NOT DETECT)
--- NOTE | 2025-10-14 10:50 | PC.CHAP ---
Pastoral Care Encounter/Spiritual Assessment Type of Contact [x] Declined chief nursing executive visit [] Patient/Family/Request visit [] Outpatient visit [] Follow-up visit [] Physician referral [] Code/Alert [] Routine visit [] Staff referral [] Actively dying [] Patient sleeping [] Family support [] [] Out of room [] Palliative care [] [] Receiving care in room [] Pre-surgical visit [] Trauma [] Long length of stay [] ICU visit [] Other: Relational/Emotional Strength [] Patient feels connected with others/family/visitors/staff [] Distress [] Loneliness/isolation [] Abandonment Spirituality of Patient [] Person of Nora [] Attends Muslim of their Nora [] Believes in Prayer [] Reads Bible or Yarsani materials [] There are Spiritual issues to be addressed 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 Interventions [] Prayer [] Active listening [] Non-anxious presence [] Spiritual/emotional support [] Crisis/trauma care [] Spiritual counseling [] Bereavement support [] Provided bereavement packet [] Provided Bible/devotional materials [] Provided toy/stuffed animal, coloring book to patient or family member [] Provided Communion [] Anointing/[place] [] Salvation [] Completed spiritual assessment [] Other: Impact on Illness or Injury [] Angry [] Fearful [] Anxious [] Often cries [] Exhaustion [] Unable to work [] Unable to attend mormon [] Unable to walk/stand [] Unable to read [] Unable to drive [] Unable to eat/drink [] Unable to sleep [] Unable to be with family [] Patient intubated [] Other: Summary Time spent with patient
[2025-10-14 11:50] VITALS: BP 131/63; PULSE 50; RESP 16; TEMP 36.6; O2SAT 96
--- NOTE | 2025-10-14 15:07 | P.PN_ITS ---
Subjective 2 Subjective: Headache is improving/resolving. He feels a little bit tremulous today. Otherwise feeling slightly better. So far without recurrence of altered mental status. Vitals/I&O/Wt Last Vital Signs Temp 97.8 F 10/14/25 11:50 Pulse 50 L 10/14/25 11:50 Resp 16 10/14/25 11:50 BP 131/63 10/14/25 11:50 Pulse Ox 96 10/14/25 11:50 O2 Del Method Room Air 10/14/25 11:50 10/14/25 10/14/25 10/14/25 06:59 14:59 22:59 Intake Total 200 / 3510 940 / 940 Output Total Balance 199 / 3509 940 / 940 Weight last 48 hrs Weight 72.66 kg Weight 71.214 kg Weight 74.843 kg Physical Exam 2 Const: COMMON NORMALS: patient oriented x3 and alert GENERAL APPEARANCE: c ooperative; not diaphoretic ORIENTATION/CONSCIOUSNESS: Yes awake HENMT: COMMON NORMALS: oropharynx normal Neck/C-Spine: COMMON NORMALS: no JVD Resp: COMMON NORMALS: normal respiratory effort and clear to auscultation bilaterally AUSCULTATION: clear to auscultation bilaterally Cardio: COMMON NORMALS: no JVD, regular rhythm, S1 normal heart sound present, S2 normal heart sound present and No murmurs present (Cardio) RHYTHM: regular rhythm HEART SOUNDS: S1 normal heart sound present and S2 normal heart sound present GI: COMMON NORMALS: Normal to inspection, nondistended, normoactive bowel sounds present, Soft to palpation and non-tender PALPATION: Yes Soft to palpation Back/Pelvis: OTHER: Spine stimulator right lower back, without erythema, induration, fluctuance, any surrounding swelling or bruising. Extremity: COMMON NORMALS: no joint enlargement and no pedal edema Neuro: COMMON NORMALS: patient oriented x3 and moves all extremities S ENSORIUM/ORIENTATION: Yes alert OTHER: Awake and alert. Somewhat hard of hearing with cochlear implant. Brezinski and Kernig negative. Skin: COMMON NORMALS: negative for no rashes or lesions noted GENERAL SKIN EXAM: rashes and/or lesions noted and no mottling Data 10/14/25 05:30 10/14/25 05:30 Micro: Microbiology 10/13/25 12:33 Blood Culture - Preliminary Blood NEGATIVE TO DATE 10/13/25 12:52 Blood Culture - Preliminary Blood 10/13/25 12:33 Legionella Urinary Antigen - Final Urine,Voided Bacterial Antigens - Final A&P Assessment and plan 1. Positive blood culture: 2/4 positive blood culture bottles for GPR. Repeat blood culture requested. Continue [facility] antibiotic coverage for now with ceftriaxone and doxycycline. Follow-up ID and sensitivity. Continue treating possible sources as below. He and his denied any substance use other than marijuana. 2. Pneumonia: Possible pneumonia (retrocardiac atelectasis versus infiltrate on chest imaging) : ED noted mild left retrocardiac abnormality concerning for atelectasis versus infiltrate; meningeal signs negative; saturation 99% on room air. - Ceftriaxone and azithromycin administered after blood cultures collected. QTc is prolonged, monitor for worsening with azithromycin. Bradycardia with repeat EKG. - Continue antibiotic treatment for pneumonia with ceftriaxone, doxycycline. - Collect sputum culture, Reviewed urine bacterial antigens, urine Legionella antigen, respiratory viral panel. Unremarkable. - Monitor oxygen saturation 3. Tick bite: Tick exposure (possible tick-borne illness) : Recent deer hunting and reported deer tick bites; no rash seen to suggest [place] spotted fever; possible Lyme disease or other tick-borne illness discussed. QT prolongation on EKG on my interpretation pending official read. Reviewed repeat EKG, improvement in QTc. - Send tick panel - Start doxycycline empirically (pending tick panel results) 4. Altered mental status: So far resolved. Headache is resolving. On presentation acute encephalopathy, possibly related to acute infection, possibly pneumonia with noted left lower lobe infiltrate, but has had tick bites recently as well, having some mild frontal headache. Acute encephalopathy for most part is resolving. Continue to reassess, reorient. Treat underlying conditions as below. - Treat suspected pneumonia (as possible cause of confusion). Will empirically cover with Flagyl as well for possible dental infection, although no obvious abscess on CT head or CT head as per discussion with radiologist. - Monitor clinical status and oxygenation - Recheck blood counts. Reviewed respiratory viral panel. - Consider lumbar puncture if fevers or worsening confusion occur, although this is complicated by prior spinal surgery and spinal stimulator. - Complained of pain around the spinal stimulator pocket. Reviewed ultrasound for any fluid collection. - Discussed discontinuation of NSAID for now with possibility of mild NSAID induced meningitis - Alternatively consider acute encephalopathy secondary to toxicity of tramadol as discussed with patient and his Plan: Broken tooth awaiting extraction : Broken tooth scheduled for extraction; dentist provided antibiotics; clinician did not see significant swelling around tooth. Without any signs of Rusty's angina. Without any local swelling, erythema. Tooth does look decayed, but otherwise without signs of local gum cellulitis or abscess. Per discussion with radiologist on additional review of CT head and head neck CTA similarly no additional findings apart from the tooth decay. - Provide antibiotic coverage for tooth with addition of Flagyl - Coordinate timing of oral surgery depending on clinical improvement Back pain with pain at back stimulator site : Back stimulator present; pain behind device with exercise; site not red or swollen. - Reaviewed ultrasound imaging of stimulator area to evaluate for collection - normal Follow-up : Plan to monitor and reassess during hospitalization. - Follow up clinical status and oxygenation - Reassess need for lumbar puncture based on fevers/worsening - Aim for discharge if improving; canceled dental procedure for now HTN: Monitor blood pressures HLD CAD: Remote history of [place]. Chronically on aspirin 81 mg, continue PDMP PDMP Reviewed: Not Reviewed Attestations 2 Medical Necessity Statement*: Continue admission for assessment of management of possible bacteremia, possible pneumonia, possible tickborne infection. , Moderate MDM includes number and complexity of problems actively addressed during encounter as documented and High MDM includes amount and/or complexity of data reviewed/ordered [ resulted lab(s)/test(s), ordered lab(s)/test(s) and other healthcare professional discussion] as documented Diagnoses Positive blood culture R78.81 Pneumonia J18.9 Tick bite W57.XXXA Altered mental status R41.82
[2025-10-14 16:00] VITALS: BP 142/68; PULSE 56; RESP 16; TEMP 36.9; O2SAT 96
[2025-10-14 20:00] VITALS: BP 159/72; PULSE 52; RESP 17; TEMP 36.6; O2SAT 97
[2025-10-15] VITALS (7 sets, daily range): BP systolic 128–162; BP diastolic 68–74; PULSE 48–56; RESP 14–18; TEMP 36.4–36.8; O2SAT 95–98; BMI 23.6
[2025-10-15] MEDS: metroNIDAZOLE IV 500 MG/100 ML PREMIX 100 MG IV ×4 (00:04→23:28)
[2025-10-15] MEDS: doxycycline 100 MG in sodium chloride 0.9% (plus) 100 ML IV ×2 (04:28→15:54)
[2025-10-15] MEDS: ATORVASTATIN 20 MG TABLET PO (04:28)
[2025-10-15] MEDS: cefTRIAXone 1,000 mg SDV 1000 MG IVP (04:29)
[2025-10-15 05:24] LABS: Hematocrit 34.4 % (37-53); Hemoglobin 11.60 g/dL (11.27-16.99); Mean Corpuscular HGB Conc 33.7 g/dL (30-55); Mean Corpuscular Hemoglobin 31.0 pg (27-33); Mean Corpuscular Volume 92.0 fl (82-101); Nucleated Red Blood Cells % 0 %; Platelet Count 167 10^3/cmm (157-399); Red Blood Count 3.74 10^6/uL (3.85-5.65); White Blood Count 6.68 10^3/uL (3.29-11.43)
[2025-10-15 05:42] LABS: Alanine Aminotransferase 15 U/L (0-41); Albumin Level 3.1 g/dL (3.5-5.2); Alkaline Phosphatase 41 U/L (40-130); Anion Gap 12.2 (5-19); Aspartate Amino Transferase 21 U/L (0-40); Blood Urea Nitrogen 13 mg/dL (8-23); Calcium 8.3 mg/dL (8.5-10.5); Carbon Dioxide 25 mmol/L (22-29); Chloride 104 mmol/L (98-107); Globulin 2.2 g/dL (1.3-4.6); Glucose 100 mg/dL (65-115); Osmolality Calculated 284 mOsm/kg (285-295); Potassium 4.2 mmol/L (3.5-5.1); Sodium 137 mmol/L (136-145); Total Protein 5.3 g/dL (6.6-8.7)
--- NOTE | 2025-10-15 12:00 | PC.SOCIAL ---
IMM Update pg 2 of IMM updated and reviewed w/ patient. Copy provided and copy dated, initialed and placed in chart.
--- NOTE | 2025-10-15 21:27 | P.PN_ITS ---
Subjective 2 Subjective: He has been improving. Headache still with. Denies additional new symptoms. Vitals/I&O/Wt Last Vital Signs Temp 98.2 F 10/15/25 21:00 Pulse 56 L 10/15/25 21:00 Resp 15 10/15/25 21:00 BP 143/74 10/15/25 21:00 Pulse Ox 96 10/15/25 20:00 O2 Del Method Room Air 10/15/25 20:00 10/15/25 10/15/25 10/15/25 06:59 14:59 22:59 Intake Total 500 / 2120 1060 / 1060 680 / 1740 Balance 500 / 1820 1060 / 1060 680 / 1740 Weight last 48 hrs Weight 72.575 kg Weight 72.66 kg Physical Exam 2 Const: COMMON NORMALS: patient oriented x3 and alert GENERAL APPEARANCE: c ooperative; not diaphoretic ORIENTATION/CONSCIOUSNESS: Yes awake HENMT: COMMON NORMALS: oropharynx normal Neck/C-Spine: COMMON NORMALS: no JVD Resp: COMMON NORMALS: normal respiratory effort and clear to auscultation bilaterally AUSCULTATION: clear to auscultation bilaterally Cardio: COMMON NORMALS: no JVD, regular rhythm, S1 normal heart sound present, S2 normal heart sound present and No murmurs present (Cardio) RHYTHM: regular rhythm HEART SOUNDS: S1 normal heart sound present and S2 normal heart sound present GI: COMMON NORMALS: Normal to inspection, nondistended, normoactive bowel sounds present, Soft to palpation and non-tender PALPATION: Yes Soft to palpation Back/Pelvis: OTHER: Spine stimulator right lower back, without erythema, induration, fluctuance, any surrounding swelling or bruising. Extremity: COMMON NORMALS: no joint enlargement and no pedal edema Neuro: COMMON NORMALS: patient oriented x3 and moves all extremities S ENSORIUM/ORIENTATION: Yes alert OTHER: Awake and alert. Somewhat hard of hearing with cochlear implant. Skin: COMMON NORMALS: negative for no rashes or lesions noted GENERAL SKIN EXAM: rashes and/or lesions noted and no mottling Data 10/15/25 04:54 10/15/25 04:54 Micro: Microbiology 10/14/25 15:57 Blood Culture - Preliminary Blood NEGATIVE TO DATE 10/14/25 15:54 Blood Culture - Preliminary Blood NEGATIVE TO DATE 10/13/25 12:52 Blood Culture - Preliminary Blood A&P Assessment and plan 1. Positive blood culture: I reviewed culture, still 2/4 positive blood culture bottles for GPR on Gram stain. So far without reported growth. Repeat culture reviewed, pending. 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 Follow-up ID and sensitivity. Discussed with him. Empiric antibiotic coverage for now with ceftriaxone and doxycycline. Follow-up ID and sensitivity. Continue treating possible sources as below. He and his denied any substance use other than marijuana. 2. Pneumonia: Possible pneumonia (retrocardiac atelectasis versus infiltrate on chest imaging) : ED noted mild left retrocardiac abnormality concerning for atelectasis versus infiltrate; meningeal signs negative; saturation 99% on room air. - Ceftriaxone and azithromycin administered after blood cultures collected. QTc is prolonged, monitor for worsening with azithromycin. Bradycardia with repeat EKG. - Continue antibiotic treatment for pneumonia with ceftriaxone, doxycycline. - Collect sputum culture, Reviewed urine bacterial antigens, urine Legionella antigen, respiratory viral panel. Unremarkable. - Monitor oxygen saturation 3. Tick bite: Reviewed tick panel, pending. Continue doxycycline. He is improving. Headache so far resolved. Without recurrence of AMS. Leukocytosis so far resolved. Repeat EKG 2 reassess QTc. - Send tick panel - doxycycline empirically (pending tick panel results) 4. Altered mental status: So far resolved. Headache is resolving. On presentation acute encephalopathy, possibly related to acute infection, possibly pneumonia with noted left lower lobe infiltrate, but has had tick bites recently as well, having some mild frontal headache. Acute encephalopathy for most part is resolving. Continue to reassess, reorient. Treat underlying conditions as below. - Treat suspected pneumonia (as possible cause of confusion). Will empirically cover with Flagyl as well for possible dental infection, although no obvious abscess on CT head or CT head as per discussion with radiologist. - Monitor clinical status and oxygenation - Recheck blood counts. Reviewed respiratory viral panel. - Complained of pain around the spinal stimulator pocket. Reviewed ultrasound for any fluid collection. - Discussed discontinuation of NSAID for now with possibility of mild NSAID induced meningitis - Alternatively consider acute encephalopathy secondary to toxicity of tramadol as discussed with patient and his . So far doing okay with tramadol here. Renew. Plan: Broken tooth awaiting extraction : Tooth/mouth is not bothering him at this time. Broken tooth scheduled for extraction; dentist provided antibiotics; clinician did not see significant swelling around tooth. Without any signs of Rusty's angina. Without any local swelling, erythema. Tooth does look decayed, but otherwise without signs of local gum cellulitis or abscess. Per discussion with radiologist on additional review of CT head and head neck CTA similarly no additional findings apart from the tooth decay. - Provide antibiotic coverage for tooth with addition of Flagyl - Coordinate timing of oral surgery depending on clinical improvement Back pain with pain at back stimulator site : Back stimulator present; pain behind device with exercise; site not red or swollen. - Reaviewed ultrasound imaging of stimulator area to evaluate for collection - normal Follow-up : Plan to monitor and reassess during hospitalization. - Follow up clinical status and oxygenation - Reassess need for lumbar puncture based on fevers/worsening - Aim for discharge if improving; canceled dental procedure for now HTN: Monitor blood pressures HLD CAD: Remote history of PR. Chronically on aspirin 81 mg, continue PDMP PDMP Reviewed: Not Reviewed Attestations 2 Medical Necessity Statement*: Continue admission for assessment of management of possible bacteremia, possible pneumonia, possible tickborne infection. and High MDM includes amount and/or complexity of data reviewed/ordered [ resulted lab(s)/test(s) and other healthcare professional discussion] as documented Diagnoses Positive blood culture R78.81 Pneumonia J18.9 Tick bite W57.XXXA Altered mental status R41.82
[2025-10-16] VITALS (10 sets, daily range): BP systolic 122–179; BP diastolic 66–88; PULSE 43–70; RESP 15–18; TEMP 36.4–37; O2SAT 94–97; BMI 23.6
[2025-10-16] MEDS: doxycycline 100 MG in sodium chloride 0.9% (plus) 100 ML IV ×2 (04:33→15:53)
[2025-10-16] MEDS: cefTRIAXone 1,000 mg SDV 1000 MG IVP (04:37)
[2025-10-16] MEDS: ATORVASTATIN 20 MG TABLET PO (04:37)
[2025-10-16 05:42] LABS: Hematocrit 36.1 % (37-53); Hemoglobin 12.30 g/dL (11.27-16.99); Mean Corpuscular HGB Conc 34.1 g/dL (30-55); Mean Corpuscular Hemoglobin 31.3 pg (27-33); Mean Corpuscular Volume 91.9 fl (82-101); Nucleated Red Blood Cells % 0 %; Platelet Count 181 10^3/cmm (157-399); Red Blood Count 3.93 10^6/uL (3.85-5.65); White Blood Count 5.63 10^3/uL (3.29-11.43)
[2025-10-16 06:02] LABS: Alanine Aminotransferase 17 U/L (0-41); Albumin Level 3.5 g/dL (3.5-5.2); Alkaline Phosphatase 43 U/L (40-130); Anion Gap 12.1 (5-19); Aspartate Amino Transferase 21 U/L (0-40); Blood Urea Nitrogen 10 mg/dL (8-23); Calcium 8.7 mg/dL (8.5-10.5); Carbon Dioxide 27 mmol/L (22-29); Chloride 103 mmol/L (98-107); Globulin 2.2 g/dL (1.3-4.6); Glucose 99 mg/dL (65-115); Osmolality Calculated 285 mOsm/kg (285-295); Potassium 4.1 mmol/L (3.5-5.1); Sodium 138 mmol/L (136-145); Total Protein 5.7 g/dL (6.6-8.7)
--- NOTE | 2025-10-16 08:00 | ECG_ITS ---
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 Measurements Intervals [place] Rate: 42 P: 0 OK: 0 QRS: 1 QRSD: 176 T: 8 QT: 500 QTc: 422 Interpretive Statements Sinus bradycardia - HR 42 RIGHT BUNDLE BRANCH BLOCK [120+ ms QRS DURATION, UPRIGHT V1, 40+ ms S IN I/aVL/V4/V5/V6] Compared to ECG 10/13/2025 18:19:45 Sinus rhythm no longer present First degree AV block no longer present Electronically Signed On 10-16-2025 17:56:33 [employer]OCI[employer] PROFESSOR [employer]ILOSOPHY by Jaya Osuna M.D. [email or web address]
[2025-10-16] MEDS: metroNIDAZOLE IV 500 MG/100 ML PREMIX 100 MG IV ×2 (08:20→15:54)
--- NOTE | 2025-10-16 15:16 | P.PN_ITS ---
Subjective 2 Subjective: Overall he is feeling much better. Headache is resolved. He is feeling back to his usual self. Vitals/I&O/Wt Last Vital Signs Temp 97.6 F 10/16/25 11:19 Pulse 43 L 10/16/25 11:19 Resp 15 10/16/25 11:19 BP 122/70 10/16/25 11:19 Pulse Ox 95 10/16/25 11:19 O2 Del Method Room Air 10/16/25 11:19 10/16/25 10/16/25 10/16/25 06:59 14:59 22:59 Intake Total 440 / 2420 580 / 580 Balance 440 / 2420 580 / 580 Weight last 48 hrs Weight 72.575 kg Weight 72.575 kg Physical Exam 2 Const: COMMON NORMALS: patient oriented x3 and alert GENERAL APPEARANCE: c ooperative; not diaphoretic ORIENTATION/CONSCIOUSNESS: Yes awake HENMT: COMMON NORMALS: oropharynx normal Neck/C-Spine: COMMON NORMALS: no JVD Resp: COMMON NORMALS: normal respiratory effort and clear to auscultation bilaterally AUSCULTATION: clear to auscultation bilaterally Cardio: COMMON NORMALS: no JVD, regular rhythm, S1 normal heart sound present, S2 normal heart sound present and No murmurs present (Cardio) RHYTHM: regular rhythm HEART SOUNDS: S1 normal heart sound present and S2 normal heart sound present GI: COMMON NORMALS: Normal to inspection, nondistended, normoactive bowel sounds present, Soft to palpation and non-tender PALPATION: Yes Soft to palpation Back/Pelvis: OTHER: Spine stimulator right lower back, without erythema, induration, fluctuance, any surrounding swelling or bruising. Extremity: COMMON NORMALS: no joint enlargement and no pedal edema Neuro: COMMON NORMALS: patient oriented x3 and moves all extremities S ENSORIUM/ORIENTATION: Yes alert OTHER: Awake and alert. Somewhat hard of hearing with cochlear implant. Skin: COMMON NORMALS: negative for no rashes or lesions noted GENERAL SKIN EXAM: rashes and/or lesions noted and no mottling Data 10/16/25 05:14 10/16/25 05:14 Micro: Microbiology 10/14/25 15:57 Blood Culture - Preliminary Blood NEGATIVE TO DATE 10/14/25 15:54 Blood Culture - Preliminary Blood NEGATIVE TO DATE A&P Assessment and plan 1. Positive blood culture: Clinically he is feeling much better. He is afebrile. Without leukocytosis on review of CBC. Reviewed blood culture, 2/4 bottles gram-positive rods. Pending ID and sensitivity. Reviewed follow-up culture, so far remaining negative. Continue assessment for possible bacteremia versus contaminated sample. In case of Bactrim will need further assessment for potential source. Empiric antibiotic coverage for now with ceftriaxone and doxycycline. Follow-up ID and sensitivity. Continue treating possible sources as below. He and his denied any substance use other than marijuana. 2. Pneumonia: Possible pneumonia (retrocardiac atelectasis versus infiltrate on chest imaging) : ED noted mild left retrocardiac abnormality concerning for atelectasis versus infiltrate; meningeal signs negative; saturation 99% on room air. - Ceftriaxone and azithromycin administered after blood cultures collected. QTc is prolonged, monitor for worsening with azithromycin. Bradycardia with repeat EKG. - Continue antibiotic treatment for pneumonia with ceftriaxone, doxycycline. - Collect sputum culture, Reviewed urine bacterial antigens, urine Legionella antigen, respiratory viral panel. Unremarkable. - Monitor oxygen saturation 3. Tick bite: Reviewed tick panel, pending. Continue doxycycline. He is improving. Headache so far resolved. Without recurrence of AMS. Leukocytosis so far resolved. Repeat EKG 2 reassess QTc. - Send tick panel - doxycycline empirically (pending tick panel results) 4. Altered mental status: So far resolved. Headache is resolving. On presentation acute encephalopathy, possibly related to acute infection, possibly pneumonia with noted left lower lobe infiltrate, but has had tick bites recently as well, having some mild frontal headache. Acute encephalopathy for most part is resolving. Continue to reassess, reorient. Treat underlying conditions as below. - Treat suspected pneumonia (as possible cause of confusion). Will empirically cover with Flagyl as well for possible dental infection, although no obvious abscess on CT head or CT head as per discussion with radiologist. - Monitor clinical status and oxygenation - Recheck blood counts. Reviewed respiratory viral panel. - Complained of pain around the spinal stimulator pocket. Reviewed ultrasound for any fluid collection. - Discussed discontinuation of NSAID for now with possibility of mild NSAID induced meningitis - Alternatively consider acute encephalopathy secondary to toxicity of tramadol as discussed with patient and his . So far doing okay with tramadol here. Renew. Plan: Bradycardia: 40s-50s, Uncertain rhythm, regular. Right bundle branch block. For the most part appears to be asymptomatic. Not on any jaun blocking medications.TSH reviewed and normal. Potassium, magnesium unremarkable. Monitor on telemetry. Check orthostatics. Ambulate. Broken tooth awaiting extraction : Tooth/mouth is not bothering him at this time. Broken tooth scheduled for extraction; dentist provided antibiotics; clinician did not see significant swelling around tooth. Without any signs of Rusty's angina. Without any local swelling, erythema. Tooth does look decayed, but otherwise without signs of local gum cellulitis or abscess. Per discussion with radiologist on additional review of CT head and head neck CTA similarly no additional findings apart from the tooth decay. - Provide antibiotic coverage for tooth with addition of Flagyl - Coordinate timing of oral surgery depending on clinical improvement Back pain with pain at back stimulator site : Back stimulator present; pain behind device with exercise; site not red or swollen. - Reaviewed ultrasound imaging of stimulator area to evaluate for collection - normal Follow-up : Plan to monitor and reassess during hospitalization. - Follow up clinical status and oxygenation - Reassess need for lumbar puncture based on fevers/worsening - Aim for discharge if improving; canceled dental procedure for now HTN: Monitor blood pressures HLD CAD: Remote history of DC. Chronically on aspirin 81 mg, continue PDMP PDMP Reviewed: Not Reviewed Attestations 2 Medical Necessity Statement*: Continue admission for assessment of management of possible bacteremia, possible pneumonia, possible tickborne infection. Diagnoses Positive blood culture R78.81 Pneumonia J18.9 Tick bite W57.XXXA Altered mental status R41.82
[2025-10-17 01:37] VITALS: BP 156/72; PULSE 51; RESP 18; TEMP 37.1; O2SAT 95
[2025-10-17] MEDS: metroNIDAZOLE IV 500 MG/100 ML PREMIX 100 MG IV (02:06)
[2025-10-17] MEDS: doxycycline 100 MG in sodium chloride 0.9% (plus) 100 ML IV (04:27)
[2025-10-17] MEDS: ATORVASTATIN 20 MG TABLET PO (04:29)
[2025-10-17] MEDS: cefTRIAXone 1,000 mg SDV 1000 MG IVP (04:33)
[2025-10-17 04:41] VITALS: BP 156/72; PULSE 51; RESP 18; TEMP 37.1
[2025-10-17 05:25] VITALS: BP 156/88; PULSE 72; RESP 17; TEMP 36.7; O2SAT 96
[2025-10-17 07:34] VITALS: BP 128/74; PULSE 51; RESP 18; TEMP 36.4; O2SAT 93
--- NOTE | 2025-10-17 08:47 | P.DS_ITS ---
Discharge Providers Date of Admission: 10/13/25 13:59 Date of Discharge: October 17, 2025 Attending Provider at Admission: Albin Alanis Attending Provider at Discharge: Albin Alanis Primary Care Provider: Joao Zuñiga MD Diagnoses at Discharge Discharge Diagnosis 1. Positive blood culture: 2. Pneumonia: 3. Tick bite: 4. 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 Woke up with a headache; confusion has improved since arrival but generalized weakness was noted. Emergency medical services (EMS) reported difficulty walking. In the emergency department (ED), he was answering questions appropriately and was not found to have focal neurologic deficits. Reports ongoing mild headache. Denies fever. reports he was more confused in the morning but is a lot better now. He typically does not get headaches and had difficulty figuring out his cochlear implant this morning. Reports his blood pressure felt lower than usual. Denies vomiting or diarrhea. Chronic cough att ributed to allergies. No recent changes to home medications. 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 Has a broken tooth awaiting extraction by oral surgeon; was given antibiotics by dentist and appointment was scheduled for tomorrow but has been canceled due to current illness. Has a back stimulator and complains of pain behind the device when attempting morning exercises; pain limits lying down to exercise. Hospital Course Hospital Course He was treated with empirically with ceftriaxone and doxycycline for possible pneumonia, with tick bites possible tickborne infection, tick panel had been sent out. Blood cultures were sent, ended up showing gram-positive rods on preliminary cultures, not bacillus). These are not further identified in the facility, and will be sent out. Repeat cultures so far remaining negative. Tick panel still pending. Oxygenation remained good on room air. Afebrile, leukocytosis resolved. Due to possible NSAID induced meningitis, NSAID discontinued, and advised not to resume after discharge. Did tolerate tramadol. With complaints of recent pain around stimulator generator, pocket assessed with ultrasound, without finding of any fluid collection. During hospitalization was covered empirically with Flagyl for possibility of dental infection as well, although no abscess seen on CT or CT per discussion with radiologist, and had had no localized swelling, tenderness. By the end of hospitalization did develop an aphthous ulcer in the anterior right hard palate. However, otherwise symptoms had resolved without recurrence of AMS, headache resolved, possible sepsis resolved. He is feeling well and requesting to return home. He was discharged with doxycycline pending tick panel, repeat cultures and identification of gram-positive peyman which given rapid improvement and organism may be a likely contaminant. He will further pursue rescheduling extraction of the decaying upper right molar. Physical Exam Narrative: Ambulating in the room. Const: COMMON NORMALS: patient oriented x3 and alert GENERAL APPEARANCE: co operative ORIENTATION/CONSCIOUSNESS: Yes awake HENMT: COMMON NORMALS: oropharynx normal OTHER: Right side cochlear implant. Neck/C-Spine: COMMON NORMALS: no JVD Resp: COMMON NORMALS: normal respiratory effort and clear to auscultation bilaterally AUSCULTATION: clear to auscultation bilaterally Cardio: COMMON NORMALS: no JVD, regular rhythm, S1 normal heart sound present, S2 normal heart sound present and No murmurs present (Cardio) RHYTHM: regular rhythm HEART SOUNDS: S1 normal heart sound present and S2 normal heart sound present GI: COMMON NORMALS: Normal to inspection, nondistended, normoactive bowel sounds present, Soft to palpation and non-tender PALPATION: Yes Soft to palpation Extremity: COMMON NORMALS: no joint enlargement and no pedal edema Neuro: COMMON NORMALS: patient oriented x3 and moves all extremities SENSORIUM/ORIENTATION: Yes alert Skin: COMMON NORMALS: no rashes or lesions noted GENERAL SKIN EXAM: no rashes or lesions noted Discharge Data Studies Completed and Pending Completed Studies During Hospitalization Category Date Time Status CT angio headneck* [id number] Stat Cat Scan 10/13/25 11:[address] head thrombolytic [id number] Stat Cat Scan 10/13/25 11:21 Completed XR chest 1V portable [id number] Stat Exams 10/13/25 11:21 Completed US soft tissue and or extremity [US soft tissue/ Ultrasound 10/13/25 16:21 Completed extremity [id number]] Routine Pending at discharge Category Date Time Status Blood Culture Stat Lab 10/13/25 12:33 Results Blood Culture Stat Lab 10/14/25 15:54 Results Sputum Culture and Gram Stain Routine Lab 10/13/25 16:21 Uncollected Tick Panel Routine Lab 10/13/25 11:27 Results Radiology Impressions Chest X-Ray 10/13/25 11:21 IMPRESSION: 1. Mild left retrocardiac opacity concerning for atelectasis versus infiltrate. Head CT 10/13/25 11:21 IMPRESSION: No acute intracranial pathology. ASSESSMENT: ASPECTS (Alethea Stroke Program Early CT Score) is 10. ADDENDUM: 10/13/25 1148 THIS REPORT CONTAINS FINDINGS THAT MAY BE CRITICAL TO PATIENT CARE. The findings were verbally communicated via telephone conference with SUNSHINE MONGE at 11:46 AM FORENSIC AUDIT EXPERT on 10/13/2025. The findings were acknowledged and understood. Head/Neck CTA 10/13/25 11:21 IMPRESSION: No large vessel significant stenosis or occlusion. IMPRESSION: No significant stenosis or occlusion. REFERENCES: NASCET CRITERIA. The degree of stenosis in the cervical segment of the internal carotid artery is based on NASCET criteria. Normal is no stenosis. Mild is less than 50% stenosis. Moderate is 50-69% stenosis. Severe is 70% to 99% stenosis. Total occlusion is no detectable patent lumen. ADDENDUM: 10/13/25 1208 THIS REPORT CONTAINS FINDINGS THAT MAY BE CRITICAL TO PATIENT CARE. The findings were verbally communicated via telephone conference with SUNSHINE MONGE at 12:07 PM FORENSIC AUDIT EXPERT on 10/13/2025. The findings were acknowledged and understood. ADDENDUM: 10/13/[id number] Alanis by telephone at 3:54 p.m., 10/13/2025. He asked me to evaluate the right upper molars. The patient is scheduled to have a right upper molar tooth extraction. Review of the CT images demonstrate dental caries of the remaining right maxillary molar. No surrounding soft tissue changes identified. Soft Tissue Ultrasound 10/13/25 16:21 IMPRESSION: Unremarkable US. Laboratory Results WBC 5.63 10^3/uL (3.29-11.43) 10/16/25 05:14 RBC 3.93 10^6/uL (3.85-5.65) 10/16/25 05:14 Hgb 12.30 g/dL (11.27-16.99) 10/16/25 05:14 Hct 36.1 % (37-53) L 10/16/25 05:14 MCV 91.9 fl (82-101) 10/16/25 05:14 MCH 31.3 pg (27-33) 10/16/25 05:14 MCHC 34.1 g/dL (30-55) 10/16/25 05:14 RDW 12.3 % (12.1-15.1) 10/16/25 05:14 Plt Count 181 10^3/cmm (157-399) 10/16/25 05:14 MPV 9.6 fL (7.4-10.4) 10/16/25 05:14 Neut % (Auto) 57.2 % 10/16/25 05:14 Lymph % (Auto) 25.9 % 10/16/25 05:14 [place] % (Auto) 10.3 % 10/16/25 05:14 Eos % (Auto) 5.7 % 10/16/25 05:14 Baso % (Auto) 0.5 % 10/16/25 05:14 Neut # (Auto) 3.22 10^3/uL (1.8-7.7) 10/16/25 05:14 Lymph # (Auto) 1.5 10^3/uL (0.8-4.8) 10/16/25 05:14 [place] # (Auto) 0.6 10^3/uL (0.2-0.9) 10/16/25 05:14 Eos # (Auto) 0.3 10^3/uL (0.0-0.8) 10/16/25 05:14 Baso # (Auto) 0.0 10^3/uL (0.0-0.1) 10/16/25 05:14 Nucleated RBC % (auto) 0 % 10/16/25 05:14 Nucleated RBCs # 0.0 /100WBC 10/16/25 05:14 PT 12.70 SECONDS (12.1-14.9) 10/13/25 11:07 INR 0.89 (0.8-1.2) 10/13/25 11:07 APTT 26.5 SECONDS (23.9-36.7) 10/13/25 11:07 Sodium 138 mmol/L (136-145) 10/16/25 05:14 Potassium 4.1 mmol/L (3.5-5.1) 10/16/25 05:14 Chloride 103 mmol/L (98-107) 10/16/25 05:14 Carbon Dioxide 27 mmol/L (22-29) 10/16/25 05:14 Anion Gap 12.1 (5-19) 10/16/25 05:14 BUN 10 mg/dL (8-23) 10/16/25 05:14 Creatinine 0.7 mg/dL (0.7-1.2) 10/16/25 05:14 GFR Calculation Not Reportable 10/16/25 05:14 Glucose 99 mg/dL (65-115) 10/16/25 05:14 POC Glucose 120 mg/dL (70-110) H 10/13/25 11:22 Calculated Osmolality 285 mOsm/kg (285-295) 10/16/25 05:14 Lactic Acid 2.2 mmol/L (0.5-2.2) 10/13/25 11:07 Lactic Acid (Sepsis) 1.3 mmol/L (0.5-2.2) 10/13/25 14:21 Calcium 8.7 mg/dL (8.5-10.5) 10/16/25 05:14 Magnesium 1.9 mg/dL (1.7-2.3) 10/13/25 11:07 Total Bilirubin 0.2 mg/dL (0.15-1.2) 10/16/25 05:14 AST 21 U/L (0-40) 10/16/25 05:14 ALT 17 U/L (0-41) 10/16/25 05:14 Alkaline Phosphatase 43 U/L (40-130) 10/16/25 05:14 Total Protein 5.7 g/dL (6.6-8.7) L 10/16/25 05:14 Albumin 3.5 g/dL (3.5-5.2) 10/16/25 05:14 Globulin 2.2 g/dL (1.3-4.6) 10/16/25 05:14 Urine Color Yellow (Yellow) 10/13/25 12:33 Urine Appearance Clear (CLEAR) 10/13/25 12:33 Urine pH 7.5 (5-7) 10/13/25 12:33 Ur Specific [place] 1.065 (1.005-1.030) H 10/13/25 12:33 Urine Protein Negative (Negative) 10/13/25 12:33 Urine Glucose (UA) Negative (Normal) 10/13/25 12:33 Urine Ketones Negative (Negative) 10/13/25 12:33 Urine Blood Non-haemolysed trace (Negative) 10/13/25 12:33 Urine Nitrate Negative (Negative) 10/13/25 12:33 Urine Bilirubin Negative (Negative) 10/13/25 12:33 Urine Urobilinogen 0.2 mg/dL (Negative) 10/13/25 12:33 Ur Leukocyte Esterase Negative (Negative) 10/13/25 12:33 Urine RBC 3-5 /hpf (0-2) 10/13/25 12:33 Urine WBC 0-5 /hpf (0-5) 10/13/25 12:33 Ur Squamous Epith Cells 0-5 /hpf (0-5) 10/13/25 12:33 Amorphous Sediment Not Reportable 10/13/25 12:33 Urine Bacteria None seen /hpf (NONE) 10/13/25 12:33 Hyaline Casts 0-4 /lpf H 10/13/25 12:33 Urine Opiates Screen Negative ng/mL (Negative) 10/13/25 12:33 Ur Barbiturates Screen Negative ng/mL (Negative) 10/13/25 12:33 Ur Phencyclidine Scrn Negative ng/mL (Negative) 10/13/25 12:33 Ur Amphetamines Screen Negative ng/mL (Negative) 10/13/25 12:33 U Benzodiazepines Scrn Negative ng/mL (Negative) 10/13/25 12:33 Urine Cocaine Screen Negative ng/mL (Negative) 10/13/25 12:33 U Marijuana (THC) Screen Positive ng/mL (Negative) H 10/13/25 12:33 Adenovirus (PCR) Not detected (NOT DETECT) 10/13/25 17:20 Lyme Ab (Western Blot) <0.90 index 10/13/25 11:27 C. pneumoniae DNA (PCR) Not detected (NOT DETECT) 10/13/25 17:20 Coronavirus 229E (PCR) Not detected (NOT DETECT) 10/13/25 17:20 Human Metapneumovir PCR Not detected (NOT DETECT) 10/13/25 17:20 Influenza A (H1) PCR Not detected (NOT DETECT) 10/13/25 17:20 Influ A (H1/09) PCR Not detected (NOT DETECT) 10/13/25 17:20 Influenza A (H3) PCR Not detected (NOT DETECT) 10/13/25 17:20 Influenza Type A (PCR) Not detected (NOT DETECT) 10/13/25 17:20 Influenza Type B (PCR) Not detected (NOT DETECT) 10/13/25 17:20 M. pneumoniae (PCR) Not detected (NOT DETECT) 10/13/25 17:20 Parainfluenza 1 (PCR) Not detected (NOT DETECT) 10/13/25 17:20 Parainfluenza 2 (PCR) Not detected (NOT DETECT) 10/13/25 17:20 Parainfluenza 3 (PCR) Not detected (NOT DETECT) 10/13/25 17:20 Parainfluenza 4 (PCR) Not detected (NOT DETECT) 10/13/25 17:20 RSV Type A (PCR) Not detected (NOT DETECT) 10/13/25 17:20 RSV Type B (PCR) Not detected (NOT DETECT) 10/13/25 17:20 Entero/Rhino (PCR) Not detected (NOT DETECT) 10/13/25 17:20 SARS-CoV-2 (PCR) Not detected (NOT DETECT) 10/13/25 17:20 Vitals Last Vital Signs Temp 97.6 F 10/17/25 07:34 Pulse 51 L 10/17/25 07:34 Resp 18 10/17/25 07:34 BP 128/74 10/17/25 07:34 Pulse Ox 93 10/17/25 07:34 O2 Del Method Room Air 10/17/25 07:34 Discharge Plan Discharge Patient Disposition: Home Condition: Stable Prescriptions: New aspirin 81 mg Tablet,Delayed Release (Dr/Ec) 81 mg PO DAILY Qty: 90 0RF doxycycline hyclate 100 mg capsule 100 mg PO BID 10 Days Qty: 20 0RF Continued tramadol 50 mg tablet 50 - 100 mg PO .Q4-6H MDD 6 daily PRN (Reason: Pain) simvastatin 20 mg tablet 10 mg PO DAILY lisinopril 40 mg tablet 40 mg PO DAILY fluticasone propionate [24 Hour Allergy Relief] 50 mcg/actuation spray,suspension 2 spray intranasal DAILY Rx Instructions: Use 2 spray(s) in each nostril once daily escitalopram oxalate 20 mg tablet 20 mg PO DAILY Discontinued aspirin 325 mg tablet 325 mg PO DAILY meloxicam 15 mg tablet 15 mg PO DAILY PRN (Reason: Abdominal Discomfort) Qty: 30 11RF Discharge Order = DC NOW: Discharge Order (Routine); Ordered 10/17/25 Ordered By: Albin Alanis Referrals: Joao Zuñiga MD [Primary Care Provider, [facility]] - 10/27/25 3:20 pm Referral Note: Possible tick infection, NSAID meningitis. Contaminated blood culture vs bacteremia. Patient Instructions: Tick Bites, Doxycycline (By mouth), Aspirin (By mouth), Viral Pneumonia (DC), Opioid Safety, Patient Portal & Sang Instructions Activity Restrictions/Additional Instructions: Follow-up to primary doctor for reassessment after possible take bite infection, possible NSAID meningitis (possibly from meloxicam), as well as positive blood culture with possible contaminant versus bacteremia. Resume arrangements for tooth extraction of the decaying upper right molar. As discussed, seek medical attention in case of any worsening or new concerning symptoms. Monitor your heart rate at home due to noted somewhat slowed heart rates. Avoid medications that may further slow down your heart rate. Discharge Attestations Time Spent in Discharge Care*: greater than 30 min Quality Metrics Clinical Quality Measures [ No reported AMI, CVA or VTE this stay] Coding Level of Care Code 93929 Total time (in minutes) for Discharge: 50 Diagnoses Positive blood culture R78.81 Pneumonia J18.9 Tick bite W57.XXXA Altered mental status R41.82
[2025-10-17 10:08] VITALS: BP 128/74; PULSE 51; RESP 18; TEMP 36.4; O2SAT 93
== END 2025-10-17 10:09 | disposition home or self-care (01) | DRG 194 ==
LOC: ER 13:30 → ER IP 13:59 → MEDSURG 16:14
PROVIDERS: Admitting Provider Internal Medicine; Emergency Provider Emergency Medicine; PCP Family Medicine; Visit Provider Internal Medicine
DX: J18.9 Pneumonia, unspecified organism (principal); G93.40 Encephalopathy, unspecified; T14.8XXA Other injury of unspecified body region, initial encounter; W57.XXXA Bitten or stung by nonvenomous insect and other nonvenomous arthropods, initial encounter; S02.5XXA Fracture of tooth (traumatic), initial encounter for closed fracture; X58.XXXA Exposure to other specified factors, initial encounter; I10 Essential (primary) hypertension; I25.10 Atherosclerotic heart disease of native coronary artery without angina pectoris; Z79.82 Long term (current) use of aspirin; E78.5 Hyperlipidemia, unspecified; Z96.21 Cochlear implant status; Z96.82 Presence of neurostimulator; Z87.891 Personal history of nicotine dependence; G89.29 Other chronic pain; M54.9 Dorsalgia, unspecified
CPT/HCPCS: 36415; 36416; 70450; 70496; 70498; 71045; 76882; 80053; 80306; 81001; 82962; 83605; 83735; 85025; 85610; 85730; 86403; 86618; 86666; 86757; 87040; 87150; 87205; 87449; 87486; 87581; 87633; 93005; 96372; 99285; J0456; J0696; J1650; J3490; J7030; J7040; J7050; J9999